=== PATIENT | male | born 1985 | race Caucasian/White ===

== ENCOUNTER → 2018-04-21 13:37 | Outpatient (CLI) | payer MEDICAID, SELFPAY ==
[2018-04-21 14:10] LABS: Abs Immature Grans 0.03 k/cumm (0.0-0.09); Absolute Basophil Count 0.03 k/cumm (0.0-0.2); Absolute Eosinophil Count 0.01 k/cumm (0.0-0.7); Absolute Lymphocyte Count 1.46 k/cumm (1.2-3.4); Absolute Monocyte Count 0.57 k/cumm (0.11-0.7); Absolute Neutrophil Count 5.98 k/cumm (1.2-6.7); Basophils % 0.4; Eosinophils % 0.1; HCT 43.7 % (40.0-50.0); HGB 15.4 g/dL (13.5-17.5); Immature Grans % 0.4; Lymphocytes % 18.1; Mean Corp. HGB Concentration 35.2 g/dL (32.0-36.0); Mean Corpuscular Hemoglobin 28.7 pg (27.0-33.0); Mean Corpuscular Volume 81.4 fL (80-95); Mean Platelet Volume 9.3 fL (8.0-11.0); Monocytes % 7.1; Neutrophils % 73.9; Platelet Count 177 x1000/uL (130-400); RBC 5.37 m/cumm (4.50-6.00); RBC Distribution Width 14.1 % (11.8-14.1); White Blood Cell Count 8.08 k/cumm (4.4-10.8)
== END ==
PROVIDERS: PCP Family Medicine; Visit Provider Nurse Practitioner Psychiatric/Mental Health
DX: F20.9 Schizophrenia, unspecified (principal); Z79.899 Other long term (current) drug therapy
CPT/HCPCS: 36415; 85025

== ENCOUNTER 2018-05-23 12:41 | Outpatient (CLI) | payer MEDICAID, SELFPAY ==
[2018-05-23 13:10] LABS: Abs Immature Grans 0.03 k/cumm (0.0-0.09); Absolute Basophil Count 0.04 k/cumm (0.0-0.2); Absolute Lymphocyte Count 1.47 k/cumm (1.2-3.4); Absolute Monocyte Count 0.56 k/cumm (0.11-0.7); Absolute Neutrophil Count 6.45 k/cumm (1.2-6.7); Basophils % 0.5; HCT 44.8 % (40.0-50.0); HGB 15.5 g/dL (13.5-17.5); Immature Grans % 0.4; Lymphocytes % 17.2; Mean Corp. HGB Concentration 34.6 g/dL (32.0-36.0); Mean Corpuscular Hemoglobin 28.6 pg (27.0-33.0); Mean Corpuscular Volume 82.7 fL (80-95); Mean Platelet Volume 9.6 fL (8.0-11.0); Monocytes % 6.5; Neutrophils % 75.4; Platelet Count 183 x1000/uL (130-400); RBC 5.42 m/cumm (4.50-6.00); RBC Distribution Width 14.2 % (11.8-14.1); White Blood Cell Count 8.55 k/cumm (4.4-10.8)
== END 2018-05-23 13:01 ==
PROVIDERS: PCP Family Medicine; Visit Provider Nurse Practitioner Psychiatric/Mental Health
DX: F20.9 Schizophrenia, unspecified (principal); Z79.899 Other long term (current) drug therapy
CPT/HCPCS: 36415; 85025

== ENCOUNTER 2018-06-20 12:49 | Outpatient (CLI) | payer MEDICAID, SELFPAY ==
[2018-06-20 13:02] LABS: Abs Immature Grans 0.02 k/cumm (0.0-0.09); Absolute Basophil Count 0.03 k/cumm (0.0-0.2); Absolute Lymphocyte Count 1.21 k/cumm (1.2-3.4); Absolute Monocyte Count 0.56 k/cumm (0.11-0.7); Absolute Neutrophil Count 4.29 k/cumm (1.2-6.7); Basophils % 0.5; HCT 42.3 % (40.0-50.0); Immature Grans % 0.3; Lymphocytes % 19.8; Mean Corp. HGB Concentration 35.5 g/dL (32.0-36.0); Mean Corpuscular Volume 81.7 fL (80-95); Mean Platelet Volume 9.6 fL (8.0-11.0); Monocytes % 9.2; Neutrophils % 70.2; Platelet Count 177 x1000/uL (130-400); RBC 5.18 m/cumm (4.50-6.00); RBC Distribution Width 13.8 % (11.8-14.1); White Blood Cell Count 6.11 k/cumm (4.4-10.8)
== END 2018-06-20 13:09 ==
PROVIDERS: PCP Family Medicine; Visit Provider Nurse Practitioner Psychiatric/Mental Health
DX: F20.9 Schizophrenia, unspecified (principal); Z79.899 Other long term (current) drug therapy
CPT/HCPCS: 85025

== ENCOUNTER 2018-07-18 13:02 | Outpatient (CLI) | payer MEDICAID, SELFPAY ==
[2018-07-18 13:38] LABS: Abs Immature Grans 0.04 k/cumm (0.0-0.09); Absolute Basophil Count 0.04 k/cumm (0.0-0.2); Absolute Eosinophil Count 0.01 k/cumm (0.0-0.7); Absolute Lymphocyte Count 1.56 k/cumm (1.2-3.4); Absolute Monocyte Count 0.67 k/cumm (0.11-0.7); Absolute Neutrophil Count 5.69 k/cumm (1.2-6.7); Basophils % 0.5; Eosinophils % 0.1; HCT 42.8 % (40.0-50.0); HGB 14.8 g/dL (13.5-17.5); Immature Grans % 0.5; Lymphocytes % 19.5; Mean Corp. HGB Concentration 34.6 g/dL (32.0-36.0); Mean Corpuscular Hemoglobin 28.2 pg (27.0-33.0); Mean Corpuscular Volume 81.7 fL (80-95); Mean Platelet Volume 8.9 fL (8.0-11.0); Monocytes % 8.4; Platelet Count 240 x1000/uL (130-400); RBC 5.24 m/cumm (4.50-6.00); RBC Distribution Width 13.6 % (11.8-14.1); White Blood Cell Count 8.01 k/cumm (4.4-10.8)
== END 2018-07-18 13:22 ==
PROVIDERS: PCP Family Medicine; Visit Provider Nurse Practitioner Psychiatric/Mental Health
DX: F20.9 Schizophrenia, unspecified (principal); Z79.899 Other long term (current) drug therapy
CPT/HCPCS: 36415; 85025

== ENCOUNTER 2018-08-23 12:28 | Outpatient (CLI) | payer MEDICAID, SELFPAY ==
[2018-08-23 13:37] LABS: Abs Immature Grans 0.05 k/cumm (0.0-0.09); Absolute Basophil Count 0.05 k/cumm (0.0-0.2); Absolute Eosinophil Count 0.02 k/cumm (0.0-0.7); Absolute Lymphocyte Count 2.23 k/cumm (1.2-3.4); Absolute Monocyte Count 0.79 k/cumm (0.11-0.7); Absolute Neutrophil Count 5.01 k/cumm (1.2-6.7); Basophils % 0.6; Eosinophils % 0.2; HCT 44.7 % (40.0-50.0); HGB 15.5 g/dL (13.5-17.5); Immature Grans % 0.6; Lymphocytes % 27.4; Mean Corp. HGB Concentration 34.7 g/dL (32.0-36.0); Mean Corpuscular Hemoglobin 27.9 pg (27.0-33.0); Mean Corpuscular Volume 80.4 fL (80-95); Mean Platelet Volume 9.7 fL (8.0-11.0); Monocytes % 9.7; Neutrophils % 61.5; Platelet Count 191 x1000/uL (130-400); RBC 5.56 m/cumm (4.50-6.00); RBC Distribution Width 13.9 % (11.8-14.1); White Blood Cell Count 8.15 k/cumm (4.4-10.8)
== END 2018-08-23 12:48 ==
PROVIDERS: PCP Family Medicine; Visit Provider Nurse Practitioner Psychiatric/Mental Health
DX: F20.9 Schizophrenia, unspecified (principal); Z79.899 Other long term (current) drug therapy
CPT/HCPCS: 36415; 85025

== ENCOUNTER 2018-09-21 11:59 | Outpatient (CLI) | payer MEDICAID, SELFPAY ==
[2018-09-21 12:52] LABS: Abs Immature Grans 0.06 k/cumm (0.0-0.09); Absolute Basophil Count 0.02 k/cumm (0.0-0.2); Absolute Eosinophil Count 0.02 k/cumm (0.0-0.7); Absolute Lymphocyte Count 1.75 k/cumm (1.2-3.4); Absolute Monocyte Count 0.74 k/cumm (0.11-0.7); Absolute Neutrophil Count 6.89 k/cumm (1.2-6.7); Basophils % 0.2; Eosinophils % 0.2; HCT 42.9 % (40.0-50.0); HGB 14.8 g/dL (13.5-17.5); Immature Grans % 0.6; Lymphocytes % 18.5; Mean Corp. HGB Concentration 34.5 g/dL (32.0-36.0); Mean Corpuscular Volume 81.3 fL (80-95); Mean Platelet Volume 9.2 fL (8.0-11.0); Monocytes % 7.8; Neutrophils % 72.7; Platelet Count 204 x1000/uL (130-400); RBC 5.28 m/cumm (4.50-6.00); RBC Distribution Width 14.1 % (11.8-14.1); White Blood Cell Count 9.48 k/cumm (4.4-10.8)
== END 2018-09-21 12:19 ==
PROVIDERS: PCP Family Medicine; Visit Provider Nurse Practitioner Psychiatric/Mental Health
DX: F20.9 Schizophrenia, unspecified (principal); Z79.899 Other long term (current) drug therapy
CPT/HCPCS: 36415; 85025

== ENCOUNTER 2018-10-20 13:30 | Outpatient (CLI) | payer MEDICAID, SELFPAY ==
[2018-10-20 13:55] LABS: Abs Immature Grans 0.02 k/cumm (0.0-0.09); Absolute Basophil Count 0.04 k/cumm (0.0-0.2); Absolute Eosinophil Count 0.09 k/cumm (0.0-0.7); Absolute Lymphocyte Count 2.01 k/cumm (1.2-3.4); Absolute Monocyte Count 0.72 k/cumm (0.11-0.7); Basophils % 0.5; HCT 42.4 % (40.0-50.0); HGB 14.7 g/dL (13.5-17.5); Immature Grans % 0.2; Lymphocytes % 22.9; Mean Corp. HGB Concentration 34.7 g/dL (32.0-36.0); Mean Corpuscular Hemoglobin 27.9 pg (27.0-33.0); Mean Corpuscular Volume 80.6 fL (80-95); Mean Platelet Volume 9.1 fL (8.0-11.0); Monocytes % 8.2; Neutrophils % 67.2; Platelet Count 226 x1000/uL (130-400); RBC 5.26 m/cumm (4.50-6.00); RBC Distribution Width 14.3 % (11.8-14.1); White Blood Cell Count 8.78 k/cumm (4.4-10.8)
== END 2018-10-20 13:50 ==
PROVIDERS: PCP Family Medicine; Visit Provider Nurse Practitioner Psychiatric/Mental Health
DX: F20.9 Schizophrenia, unspecified (principal); Z79.899 Other long term (current) drug therapy
CPT/HCPCS: 36415; 85025

== ENCOUNTER 2018-11-21 11:57 | Outpatient (CLI) | payer MEDICAID, SELFPAY ==
[2018-11-21 12:26] LABS: Abs Immature Grans 0.03 k/cumm (0.0-0.09); Absolute Basophil Count 0.04 k/cumm (0.0-0.2); Absolute Eosinophil Count 0.09 k/cumm (0.0-0.7); Absolute Monocyte Count 0.64 k/cumm (0.11-0.7); Absolute Neutrophil Count 5.87 k/cumm (1.2-6.7); Basophils % 0.5; Eosinophils % 1.1; HCT 44.6 % (40.0-50.0); HGB 15.4 g/dL (13.5-17.5); Immature Grans % 0.4; Lymphocytes % 21.3; Mean Corp. HGB Concentration 34.5 g/dL (32.0-36.0); Mean Corpuscular Hemoglobin 27.7 pg (27.0-33.0); Mean Corpuscular Volume 80.2 fL (80-95); Mean Platelet Volume 9.6 fL (8.0-11.0); Monocytes % 7.6; Neutrophils % 69.1; Platelet Count 211 x1000/uL (130-400); RBC 5.56 m/cumm (4.50-6.00); RBC Distribution Width 14.3 % (11.8-14.1); White Blood Cell Count 8.47 k/cumm (4.4-10.8)
== END 2018-11-21 12:17 ==
PROVIDERS: PCP Family Medicine; Visit Provider Nurse Practitioner Psychiatric/Mental Health
DX: F20.9 Schizophrenia, unspecified (principal); Z79.899 Other long term (current) drug therapy
CPT/HCPCS: 36415; 85025

== ENCOUNTER 2018-12-18 09:45 | Outpatient (CLI) | payer MEDICAID, SELFPAY ==
[2018-12-18 10:28] LABS: Abs Immature Grans 0.03 k/cumm (0.0-0.09); Absolute Basophil Count 0.02 k/cumm (0.0-0.2); Absolute Eosinophil Count 0.09 k/cumm (0.0-0.7); Absolute Lymphocyte Count 1.47 k/cumm (1.2-3.4); Absolute Monocyte Count 0.57 k/cumm (0.11-0.7); Absolute Neutrophil Count 5.61 k/cumm (1.2-6.7); Basophils % 0.3; Eosinophils % 1.2; HCT 43.4 % (40.0-50.0); HGB 14.7 g/dL (13.5-17.5); Immature Grans % 0.4; Lymphocytes % 18.9; Mean Corp. HGB Concentration 33.9 g/dL (32.0-36.0); Mean Corpuscular Hemoglobin 27.5 pg (27.0-33.0); Mean Corpuscular Volume 81.1 fL (80-95); Mean Platelet Volume 9.7 fL (8.0-11.0); Monocytes % 7.3; Neutrophils % 71.9; Platelet Count 209 x1000/uL (130-400); RBC 5.35 m/cumm (4.50-6.00); RBC Distribution Width 14.2 % (11.8-14.1); White Blood Cell Count 7.79 k/cumm (4.4-10.8)
== END 2018-12-18 10:05 ==
PROVIDERS: PCP Family Medicine; Visit Provider Nurse Practitioner Psychiatric/Mental Health
DX: F20.9 Schizophrenia, unspecified (principal); Z79.899 Other long term (current) drug therapy
CPT/HCPCS: 36415; 85025

== ENCOUNTER 2019-01-15 11:31 | Outpatient (CLI) | payer MEDICAID, SELFPAY ==
[2019-01-15 12:04] LABS: Abs Immature Grans 0.02 k/cumm (0.0-0.09); Absolute Basophil Count 0.03 k/cumm (0.0-0.2); Absolute Eosinophil Count 0.07 k/cumm (0.0-0.7); Absolute Lymphocyte Count 1.67 k/cumm (1.2-3.4); Absolute Monocyte Count 0.61 k/cumm (0.11-0.7); Absolute Neutrophil Count 5.98 k/cumm (1.2-6.7); Basophils % 0.4; Eosinophils % 0.8; HCT 44.7 % (40.0-50.0); HGB 15.1 g/dL (13.5-17.5); Immature Grans % 0.2; Lymphocytes % 19.9; Mean Corp. HGB Concentration 33.8 g/dL (32.0-36.0); Mean Corpuscular Hemoglobin 27.4 pg (27.0-33.0); Mean Corpuscular Volume 81.1 fL (80-95); Mean Platelet Volume 9.6 fL (8.0-11.0); Monocytes % 7.3; Neutrophils % 71.4; Platelet Count 216 x1000/uL (130-400); RBC 5.51 m/cumm (4.50-6.00); RBC Distribution Width 14.1 % (11.8-14.1); White Blood Cell Count 8.38 k/cumm (4.4-10.8)
== END 2019-01-15 11:51 ==
PROVIDERS: PCP Family Medicine; Visit Provider Nurse Practitioner Psychiatric/Mental Health
DX: F20.9 Schizophrenia, unspecified (principal); Z79.899 Other long term (current) drug therapy
CPT/HCPCS: 36415; 85025

== ENCOUNTER 2019-02-12 10:20 | Outpatient (CLI) | payer MEDICAID, SELFPAY ==
[2019-02-12 10:50] LABS: Abs Immature Grans 0.03 k/cumm (0.0-0.09); Absolute Basophil Count 0.04 k/cumm (0.0-0.2); Absolute Lymphocyte Count 1.54 k/cumm (1.2-3.4); Absolute Monocyte Count 0.68 k/cumm (0.11-0.7); Absolute Neutrophil Count 5.91 k/cumm (1.2-6.7); Basophils % 0.5; Eosinophils % 1.2; HCT 42.7 % (40.0-50.0); HGB 14.6 g/dL (13.5-17.5); Immature Grans % 0.4; Lymphocytes % 18.6; Mean Corp. HGB Concentration 34.2 g/dL (32.0-36.0); Mean Corpuscular Hemoglobin 27.7 pg (27.0-33.0); Mean Platelet Volume 9.6 fL (8.0-11.0); Monocytes % 8.2; Neutrophils % 71.1; Platelet Count 195 x1000/uL (130-400); RBC 5.27 m/cumm (4.50-6.00)
== END 2019-02-12 10:40 ==
PROVIDERS: Nurse Practitioner Family; PCP Family Medicine; Visit Provider Family Medicine
DX: F20.9 Schizophrenia, unspecified (principal); Z79.899 Other long term (current) drug therapy
CPT/HCPCS: 36415; 85025

== ENCOUNTER 2019-03-12 10:30 | Outpatient (CLI) | payer MEDICAID, SELFPAY ==
[2019-03-12 11:11] LABS: Abs Immature Grans 0.02 k/cumm (0.0-0.09); Absolute Basophil Count 0.03 k/cumm (0.0-0.2); Absolute Lymphocyte Count 1.37 k/cumm (1.2-3.4); Absolute Monocyte Count 0.47 k/cumm (0.11-0.7); Absolute Neutrophil Count 5.39 k/cumm (1.2-6.7); Basophils % 0.4; Eosinophils % 1.4; HCT 43.3 % (40.0-50.0); HGB 14.8 g/dL (13.5-17.5); Immature Grans % 0.3; Lymphocytes % 18.6; Mean Corp. HGB Concentration 34.2 g/dL (32.0-36.0); Mean Corpuscular Hemoglobin 27.6 pg (27.0-33.0); Mean Corpuscular Volume 80.8 fL (80-95); Mean Platelet Volume 9.6 fL (8.0-11.0); Monocytes % 6.4; Neutrophils % 72.9; Platelet Count 195 x1000/uL (130-400); RBC 5.36 m/cumm (4.50-6.00); RBC Distribution Width 13.9 % (11.8-14.1); White Blood Cell Count 7.38 k/cumm (4.4-10.8)
== END 2019-03-12 10:50 ==
PROVIDERS: PCP Family Medicine; Visit Provider Nurse Practitioner Psychiatric/Mental Health
DX: F20.9 Schizophrenia, unspecified (principal); Z79.899 Other long term (current) drug therapy
CPT/HCPCS: 36415; 85025

== ENCOUNTER 2019-04-09 10:27 | Outpatient (CLI) | payer MEDICAID, SELFPAY ==
[2019-04-09 10:58] LABS: Abs Immature Grans 0.04 k/cumm (0.0-0.09); Absolute Basophil Count 0.04 k/cumm (0.0-0.2); Absolute Eosinophil Count 0.14 k/cumm (0.0-0.7); Absolute Lymphocyte Count 1.45 k/cumm (1.2-3.4); Absolute Monocyte Count 0.52 k/cumm (0.11-0.7); Absolute Neutrophil Count 5.38 k/cumm (1.2-6.7); Basophils % 0.5; Eosinophils % 1.8; HCT 42.6 % (40.0-50.0); HGB 14.4 g/dL (13.5-17.5); Immature Grans % 0.5; Lymphocytes % 19.2; Mean Corp. HGB Concentration 33.8 g/dL (32.0-36.0); Mean Corpuscular Hemoglobin 27.4 pg (27.0-33.0); Mean Platelet Volume 9.5 fL (8.0-11.0); Monocytes % 6.9; Neutrophils % 71.1; Platelet Count 194 x1000/uL (130-400); RBC 5.26 m/cumm (4.50-6.00); RBC Distribution Width 14.3 % (11.8-14.1); White Blood Cell Count 7.57 k/cumm (4.4-10.8)
== END 2019-04-09 10:47 ==
PROVIDERS: PCP Family Medicine; Visit Provider Nurse Practitioner Family
DX: F20.9 Schizophrenia, unspecified (principal); Z79.899 Other long term (current) drug therapy
CPT/HCPCS: 36415; 85025

== ENCOUNTER 2019-05-07 12:42 | Outpatient (CLI) | payer MEDICAID, SELFPAY ==
[2019-05-07 14:09] LABS: Abs Immature Grans 0.04 k/cumm (0.0-0.09); Absolute Basophil Count 0.04 k/cumm (0.0-0.2); Absolute Eosinophil Count 0.11 k/cumm (0.0-0.7); Absolute Lymphocyte Count 1.88 k/cumm (1.2-3.4); Absolute Monocyte Count 0.65 k/cumm (0.11-0.7); Absolute Neutrophil Count 5.77 k/cumm (1.2-6.7); Basophils % 0.5; Eosinophils % 1.3; HCT 44.9 % (40.0-50.0); HGB 15.1 g/dL (13.5-17.5); Immature Grans % 0.5; Lymphocytes % 22.1; Mean Corp. HGB Concentration 33.6 g/dL (32.0-36.0); Mean Corpuscular Hemoglobin 27.5 pg (27.0-33.0); Mean Corpuscular Volume 81.6 fL (80-95); Mean Platelet Volume 9.6 fL (8.0-11.0); Monocytes % 7.7; Neutrophils % 67.9; Platelet Count 238 x1000/uL (130-400); RBC Distribution Width 14.5 % (11.8-14.1); White Blood Cell Count 8.49 k/cumm (4.4-10.8)
== END 2019-05-07 13:02 ==
PROVIDERS: PCP Family Medicine; Visit Provider Nurse Practitioner Family
DX: F20.9 Schizophrenia, unspecified (principal); Z79.899 Other long term (current) drug therapy
CPT/HCPCS: 36415; 85025

== ENCOUNTER 2019-06-07 11:06 | Outpatient (CLI) | payer MEDICAID, SELFPAY ==
[2019-06-07 11:33] LABS: Abs Immature Grans 0.02 k/cumm (0.0-0.09); Absolute Basophil Count 0.05 k/cumm (0.0-0.2); Absolute Eosinophil Count 0.19 k/cumm (0.0-0.7); Absolute Lymphocyte Count 2.01 k/cumm (1.2-3.4); Absolute Monocyte Count 0.75 k/cumm (0.11-0.7); Absolute Neutrophil Count 6.18 k/cumm (1.2-6.7); Basophils % 0.5; Eosinophils % 2.1; HCT 44.3 % (40.0-50.0); Immature Grans % 0.2; Lymphocytes % 21.8; Mean Corp. HGB Concentration 33.9 g/dL (32.0-36.0); Mean Corpuscular Hemoglobin 27.1 pg (27.0-33.0); Mean Corpuscular Volume 80.1 fL (80-95); Mean Platelet Volume 9.2 fL (8.0-11.0); Monocytes % 8.2; Neutrophils % 67.2; Platelet Count 235 x1000/uL (130-400); RBC 5.53 m/cumm (4.50-6.00); RBC Distribution Width 14.5 % (11.8-14.1)
== END 2019-06-07 11:26 ==
PROVIDERS: PCP Family Medicine; Visit Provider Nurse Practitioner Family
DX: F20.9 Schizophrenia, unspecified (principal); Z79.899 Other long term (current) drug therapy
CPT/HCPCS: 36415; 85025

== ENCOUNTER 2019-06-26 14:53 | Emergency (ER) | payer MEDICAID, SELFPAY ==
[2019-06-26 14:58] VITALS: BP 119/63; PULSE 120; RESP 20; TEMP 36.7; O2SAT 96
--- NOTE | 2019-06-26 15:10 | ED.GENADUL_ITS ---
Discharge Plan Disposition Patient Disposition: HOME Condition: Stable Discharge Details Chief Complaint: PsychEval Clinical Impression: Depression Primary Care Provider: Shelby Rankin V ED Provider: Ronnie Phipps Home Meds and New Rx's Prescriptions: Continued ibuprofen 800 mg Tablet 800 mg PO TID PRNRF: 0 clozapine 100 mg Tablet 200 mg PO HS RF: 0 omeprazole 20 mg Capsule,Delayed Release(Dr/Ec) 20 mg PO DAILY RF: 0 hydroxyzine HCl 25 mg Tablet 25 mg PO BID PRNRF: 0 diazepam 10 mg Tablet 10 mg PO BID PRNRF: 0 olanzapine 20 mg Tablet 20 mg PO QHS RF: 0 Discharge Instructions Instructions: Depression (ED), Suicide Prevention for Adults (ED) Additional Instructions: Please follow-up with your primary care doctor for endocrine testing as discussed for screening for abnormal hormones which can possibly contribute to weight gain and depression. Rest activities as tolerated. Follow-up with outpatient services with your counselor and very closely with yo primary care doctor as discussed. You were evaluated by mental health today which feels you are appropriate for discharge home at this time. Return for any worsening, concerns or alarming symptoms sooner if needed Referrals: Shelby Rankin MD [Primary Care Provider] - 1 week Discharge Data Discharge Date/Time-TO BE ENTERED AT DEPARTURE: 06/26/19 17:05 Medical Decision Making <GERONIMO Cook - Last Filed: 06/27/19 13:44> Mental health at the bedside to evaluate this patient for suicidal ideation which she reports is somewhat chronic but worse in the last few weeks. <Ronnie Phipps NP - Last Filed: 06/26/19 23:45> Patient signed out to me by GERONIMO Catalan. Patient fully assessed by mental health acute securities underwriter and deemed safe for discharge. Patient states no further suicidal ideations but continued depression. Patient denies any specific plan at this time. Clearly reiterated to patient that he may return to the emergency department if he changes his mind or has any worsening depression or suicidal ideations. And also was speaking to patient myself I do not feel that there is any need to make patient involuntary at this time. Patient was placed upon follow-up list to follow-up with his primary care provider for both worsening depression and consideration of any medication changes along with consideration of endocrine studies such as thyroid and adrenal. I do not feel that these need to be done on emergent basis but should be considered. After discussion of diagnosis and plan of care patient has no further needs, questions, or concerns and states clear understanding to return to the emergency department for any worsening symptoms. HPI <GERONIMO Cook - Last Filed: 06/27/19 13:44> General Date/Time Provider Initiated Documentation: 06/26/19 14:54 . HPI Narrative: This is a 33-year-old gentleman who presents to the emergency room today for mental health evaluation. Patient reports he is feeling suicidal. Patient reports significant depression, lack of self-confidence. Lives with his father and brother and reports stress living at home. Patient also reports stressors related to an ex-girlfriend. Patient reports chronic suicidality for the last several months but worse in the last few weeks recently becoming more intense thoughts. Patient is compliant with his daily medications. Patient reports he does feel safe at home but reports his overwhelming feeling is angry. Denies any specific medical concerns or complaints. Does report difficulty sleeping at night. Patient reports eating or drinking without difficulty. No bowel changes or urinary changes recently. Related Data Home Medications Medication Instructions Recorded Confirmed clozapine 200 mg PO HS 06/26/19 06/26/19 diazepam 10 mg PO BID PRN 06/26/19 06/26/19 hydroxyzine HCl 25 mg PO BID PRN 06/26/19 06/26/19 ibuprofen 800 mg PO TID PRN 06/26/19 06/26/19 olanzapine 20 mg PO QHS 06/26/19 06/26/19 omeprazole 20 mg PO DAILY 06/26/19 06/26/19 Allergies Allergy/AdvReac Type Severity Reaction Status Date / Time No Known Allergies Allergy Unverified 06/26/19 15:01 General Stated Complaint: PsychEval JOHN: 2 Review of Systems <GERONIMO oCok - Last Filed: 06/27/19 13:44> All systems reviewed & are unremarkable except as noted in HPI and below Constitutional Constitutional: Denies chills, Denies fever(s), Denies headache(s) and Denies malaise ENT Ears, Nose, Mouth, and Throat: Denies dizziness and Denies headache(s) Respiratory Respiratory: Reports cough and Denies pain with cough Gastrointestinal Gastrointestinal: Denies abdominal pain, Denies diarrhea, Denies nausea and Denies vomiting Genitourinary Genitourinary: Denies dysuria Neurologic Neurologic: Denies dizziness and Denies headache(s) PFSH <GERONIMO Cook - Last Filed: 06/27/19 13:44> Social History Smoking/Tobacco Use Status: Current every day Alcohol Intake: never Drug use: Never Substance use type: does not use Do you feel safe at home: Yes Do you feel safe in your relationship?: Yes Exam <GERONIMO Cook - Last Filed: 06/27/19 13:44> Narrative Exam Narrative: CONST: no acute distress. Well hydrated. Alert and alert. Obese HENMT: Head nomocephalic, normal to inspection. Atraumatic. Hearing grossly normal. EYES: General normal appearance. Alignment normal. Eyelids normal. Conjunctiva normal. NECK: Normal visual inspection. FROM. Trachea midline. No Midline tenderness. CHEST: Normal insepection of the chest. RESP: Normal respiratory effort. Speaking full sentences. No cough. No audible wheezing. No retractions. CARDIO: No JVD. MUSCULOSKELETAL: Normal Gait. FROM of all extremities. SKIN: Normal. Dry. No rashes. NEURO: Alert and awake. Speech clear. PSYCH: Normal affect. Cooperative. Course <GERONIMO Cook - Last Filed: 06/27/19 13:44> Vital Signs Vital signs: Vital Signs Temperature 36.7 C 06/26/19 14:58 Pulse 120 H 06/26/19 14:58 Respiratory Rate 20 06/26/19 14:58 Blood Pressure 119/63 06/26/19 14:58 Pulse Oximetry 96 06/26/19 14:58 Temperature 36.7 C 06/26/19 14:58 Temperature Source Temporal Artery Scan 06/26/19 14:58 Pulse 120 H 06/26/19 14:58 Respiratory Rate 20 06/26/19 14:58 Blood Pressure 119/63 06/26/19 14:58 Pulse Oximetry 96 06/26/19 14:58 Oxygen Delivery Method Room Air 06/26/19 14:58 Oxygen Flow Rate 0 06/26/19 14:58 Pain Level 6 06/26/19 14:58 Sign Out <GERONIMO Cook - Last Filed: 06/27/19 13:44> Sign Out Data: Sign Out Comment: Signout pending disposition Last updated by Tiny Meredith PA at 06/26/19 16:27
[2019-06-26 17:07] VITALS: BP 119/63; PULSE 108; RESP 20; TEMP 36.7; O2SAT 96
--- NOTE | 2019-06-26 17:08 | NUR.NOTE ---
Nursing Note: Referral faxed to PCP for follow up. Faith Norman.
--- NOTE | 2019-06-27 11:04 | PDOC.MHCN ---
Date of service: 06/26/19 Time of Service: 03:00 Mental Health Crisis Note Presenting Issue How did you arrive at the ED and why did you come: Client arrived at ER via ambulance Precipitating Factors Client stated that he was suicidal during an appointment with his med provider. Denies SI/HI for this assessment. Disposition BEHAVIOR: Client was laying face down for most of assessment. Sat up occasionally. Possible AVH EYE CONTACT: Avoidant at first, then normal. MOOD: Depressed AFFECT: Tearful at times, otherwise unremarkable. APPETITE: N/A SLEEP(trouble falling/staying asleep: N/A Plan Client denies SI/HI and does not want placement in a psychiatric hospital or carebed. He states wants to return home and will be safe there. Client will be transported home via [facility].
== END 2019-06-26 17:05 | disposition home or self-care (01) ==
LOC: ER 17:01
PROVIDERS: Emergency Provider Nurse Practitioner Family; PCP Family Medicine
DX: F32.9 Major depressive disorder, single episode, unspecified (principal); Z59.9 Problem related to housing and economic circumstances, unspecified
CPT/HCPCS: 99284

== ENCOUNTER 2019-07-05 11:21 | Outpatient (CLI) | payer MEDICAID, SELFPAY ==
[2019-07-05 11:59] LABS: Abs Immature Grans 0.03 k/cumm (0.0-0.09); Absolute Basophil Count 0.03 k/cumm (0.0-0.2); Absolute Eosinophil Count 0.13 k/cumm (0.0-0.7); Absolute Lymphocyte Count 1.42 k/cumm (1.2-3.4); Absolute Monocyte Count 0.67 k/cumm (0.11-0.7); Absolute Neutrophil Count 5.86 k/cumm (1.2-6.7); Basophils % 0.4; Eosinophils % 1.6; Immature Grans % 0.4; Lymphocytes % 17.4; Mean Corp. HGB Concentration 33.3 g/dL (32.0-36.0); Mean Corpuscular Volume 80.9 fL (80-95); Mean Platelet Volume 9.1 fL (8.0-11.0); Monocytes % 8.2; Platelet Count 242 x1000/uL (130-400); RBC 5.19 m/cumm (4.50-6.00); RBC Distribution Width 14.5 % (11.8-14.1); White Blood Cell Count 8.14 k/cumm (4.4-10.8)
== END 2019-07-05 11:41 ==
PROVIDERS: PCP Family Medicine; Visit Provider Nurse Practitioner Family
DX: F20.9 Schizophrenia, unspecified (principal); Z79.899 Other long term (current) drug therapy
CPT/HCPCS: 36415; 85025

== ENCOUNTER 2019-08-13 13:27 | Outpatient (CLI) | payer MEDICAID, SELFPAY ==
[2019-08-13 13:55] LABS: Abs Immature Grans 0.03 k/cumm (0.0-0.09); Absolute Basophil Count 0.02 k/cumm (0.0-0.2); Absolute Eosinophil Count 0.15 k/cumm (0.0-0.7); Absolute Lymphocyte Count 1.75 k/cumm (1.2-3.4); Absolute Monocyte Count 0.69 k/cumm (0.11-0.7); Absolute Neutrophil Count 5.69 k/cumm (1.2-6.7); Basophils % 0.2; Eosinophils % 1.8; HCT 43.3 % (40.0-50.0); HGB 14.4 g/dL (13.5-17.5); Immature Grans % 0.4; Mean Corp. HGB Concentration 33.3 g/dL (32.0-36.0); Mean Corpuscular Hemoglobin 26.6 pg (27.0-33.0); Mean Corpuscular Volume 79.9 fL (80-95); Mean Platelet Volume 9.4 fL (8.0-11.0); Monocytes % 8.3; Neutrophils % 68.3; Platelet Count 247 x1000/uL (130-400); RBC 5.42 m/cumm (4.50-6.00); RBC Distribution Width 14.5 % (11.8-14.1); White Blood Cell Count 8.33 k/cumm (4.4-10.8)
== END 2019-08-13 13:47 ==
PROVIDERS: PCP Family Medicine; Visit Provider Nurse Practitioner Family
DX: F20.9 Schizophrenia, unspecified (principal); Z79.899 Other long term (current) drug therapy
CPT/HCPCS: 36415; 85025

== ENCOUNTER 2019-09-05 10:47 | Outpatient (CLI) | payer MEDICAID, SELFPAY ==
--- NOTE | 2019-09-05 13:07 | PFT_ITS ---
PULMONARY FUNCTION TEST REPORT DATE OF SERVICE: September 05, 2019 REQUESTING PROVIDER: Shelby Rankin M.D. Spirometry shows no evidence of obstructive airways disease; no bronchodilator testing was carried out. IMPRESSION: Normal spirometry. Clinical correlation recommended. KUSHAL/lilia D/
== END 2019-09-05 11:07 ==
PROVIDERS: PCP Family Medicine; Visit Provider Family Medicine
DX: R06.09 Other forms of dyspnea (principal); R05 Cough
CPT/HCPCS: 94010

== ENCOUNTER 2019-09-20 13:59 | Outpatient (CLI) | payer MEDICAID, SELFPAY ==
[2019-09-20 15:05] LABS: Abs Immature Grans 0.04 k/cumm (0.0-0.09); Absolute Basophil Count 0.03 k/cumm (0.0-0.2); Absolute Eosinophil Count 0.14 k/cumm (0.0-0.7); Absolute Lymphocyte Count 2.07 k/cumm (1.2-3.4); Absolute Monocyte Count 0.84 k/cumm (0.11-0.7); Absolute Neutrophil Count 5.99 k/cumm (1.2-6.7); Basophils % 0.3; Eosinophils % 1.5; HCT 43.1 % (40.0-50.0); HGB 14.6 g/dL (13.5-17.5); Immature Grans % 0.4 %; Lymphocytes % 22.7; Mean Corp. HGB Concentration 33.9 g/dL (32.0-36.0); Mean Corpuscular Hemoglobin 27.1 pg (27.0-33.0); Mean Platelet Volume 9.5 fL (8.0-11.0); Monocytes % 9.2; Neutrophils % 65.9; Platelet Count 245 x1000/uL (130-400); RBC 5.39 m/cumm (4.50-6.00); RBC Distribution Width 14.8 % (11.8-14.1); White Blood Cell Count 9.11 k/cumm (4.4-10.8)
== END 2019-09-20 14:19 ==
PROVIDERS: PCP Family Medicine; Visit Provider Nurse Practitioner Family
DX: F20.9 Schizophrenia, unspecified (principal); Z79.899 Other long term (current) drug therapy
CPT/HCPCS: 36415; 85025

== ENCOUNTER 2019-09-29 06:53 | Emergency (ER) | payer MEDICAID, SELFPAY ==
[2019-09-29 06:59] VITALS: BP 108/90; PULSE 125; RESP 20; TEMP 36; O2SAT 97
--- NOTE | 2019-09-29 06:59 | ED.GENADUL_ITS ---
Discharge Plan Disposition Patient Disposition: HOME Condition: Good Discharge Details Chief Complaint: Orthopedic Clinical Impression: Contusion of hand, right Primary Care Provider: Shelby Rankin V ED Provider: Song Dubose Home Meds and New Rx's Prescriptions: Continued ibuprofen 800 mg Tablet 800 mg PO TID PRNRF: 0 clozapine 100 mg Tablet 200 mg PO HS RF: 0 omeprazole 20 mg Capsule,Delayed Release(Dr/Ec) 20 mg PO DAILY RF: 0 hydroxyzine HCl 25 mg Tablet 25 mg PO BID PRNRF: 0 diazepam 10 mg Tablet 10 mg PO BID PRNRF: 0 olanzapine 20 mg Tablet 20 mg PO QHS RF: 0 Discharge Instructions Instructions: Contusion in Adults (ED) Additional Instructions: You have a notable contusion of your hand. The x-ray shows no signs of a fracture per our radiologist. Please take 1000 mg of Tylenol every 6 hours and 800 mg of ibuprofen every 8 hours as needed for pain. Please use the brace as needed. If you notice any worsening of your symptoms, or any new symptoms such as vomiting, diarrhea, fever, chills, shortness of breath, chest pain, numbness, weakness, or fainting , please return immediately to the emergency department for reevaluation. Please follow up with your primary care provider as soon as possible for reassessment and reevaluation. As always, it was a pleasure participating in your medical care today. Referrals: Shelby Rankin MD [Primary Care Provider] - Medical Decision Making This is a pleasant 34-year-old male who presents for evaluation of right hand pain in his dominant hand. Patient punched a door frame last night. Exam demonstrates small amount of swelling over the distal fifth metacarpal. No atypical internal or external rotation of the fingers on flexion. Symptoms are concerning for boxer's fracture. Contusion is also certainly on the differential. We will get an x-ray. Patient is refusing Tylenol or Motrin. With no focal neurologic or vascular deficits, do feel that the patient's hand is otherwise notably stable. 7:42 AM X-ray results are negative for acute fracture per virtual radiology. We will give a boxer splint for comfort per patient request. Signs and symptoms clinically consistent with contusion discussed red flags which to return. I have extensively reviewed the treatment plan and discharge instructions with the patient. I have addressed all patient concerns at this time. The patient was made aware of what symptoms to monitor for that would warrant a return to the emergency department. Discussed the plan with the patient, they demonstrate verbal understanding and agreement with our assessment and plan at this time. 7:50 AM Patient did refuse the splint. He will be discharged home. Pain well controlled. FINDINGS: Bones/joints: No fracture or dislocation. Normal bone density. Degenerative arthrosis of the index finger distal interphalangeal joint. Soft tissues: Swelling of the hand soft tissues. IMPRESSION: No fracture. Thank you for allowing us to participate in the care of your patient. Dictated and Authenticated by: Iggy España MD 09/29/2019 7:43 AM Eastern Time ([place] & [place]) HPI General Date/Time Provider Initiated Documentation: 09/29/19 06:56 . HPI Narrative: This is a 34-year-old male who presents today for evaluation of pain in his right dominant hand. Last night he punched a door frame with his hand. He has had mild pain over the fifth metacarpal since then. Pain is made worse with movement. He has no associated numbness or tingling. He has not taken any medication for the pain. He came at the request of his friends. He denies any complaint of pain in his wrist forearm or fingers. He denies any other modifying factors. Related Data Home Medications Medication Instructions Recorded Confirmed clozapine 200 mg PO HS 06/26/19 09/29/19 diazepam 10 mg PO BID PRN 06/26/19 09/29/19 hydroxyzine HCl 25 mg PO BID PRN 06/26/19 09/29/19 ibuprofen 800 mg PO TID PRN 06/26/19 09/29/19 olanzapine 20 mg PO QHS 06/26/19 09/29/19 omeprazole 20 mg PO DAILY 06/26/19 09/29/19 Allergies Allergy/AdvReac Type Severity Reaction Status Date / Time No Known Allergies Allergy Unverified 09/29/19 07:02 General JOHN: 2 Review of Systems All systems reviewed & are unremarkable except as noted in HPI and below PFSH Social History Smoking/Tobacco Use Status: Current every day Tobacco Type: cigarettes Alcohol Intake: never Drug use: Never Substance use type: does not use Do you feel safe at home: Yes Do you feel safe in your relationship?: Yes Exam Narrative Exam Narrative: 1.Const: Well-nourished, Well-developed, appearing stated age 2.Eyes: PERRL, no conjunctival injection, and symmetrical lids. 3.ENT: Atraumatic external nose and ears. Moist MM. Neck: Symmetric, trachea midline, No thyromegaly. 4.CVS: +S1/S2, No murmurs or gallops. Peripheral pulses 2+ and equal in all extremities. Brisk capillary refill in all extremities. 5.RESP: Unlabored respiratory effort. Clear to auscultation bilaterally. No wheezes rales or rhonchi 6.GI: Soft, Nontender/Nondistended, No hepatosplenomegaly. No guarding or rebound. 7.MSK: Normocephalic, Extremities w/o deformity. Right hand: Warm symmetrically palpable radial and ulnar pulses. Capillary refill less than 2 seconds to all digits. Intact sensation to light touch of the radial, median and ulnar nerves demonstrated by testing in the dorsal web space of the thumb, the distal palmar aspect of the index finger, and the lateral surface of the fifth finger. 2 point discrimination intact to 5mm (up to 6mm can be normal in digits 3-5) of discrimination in the affected digit. Intact motor function of the radial, median and ulnar nerves demonstrated by strength of extension of the isolated distal joint of the index finger, hand plastic roller, and spreading of the 2nd through 5th digits. Intact recurrent median nerve as demonstrated by ability to move thumb fully through opposition, abduction and flexion. No snuffbox tenderness. Mild tenderness as well as mild edema over the distal aspect of the fifth metacarpal. Flexion of all fingers reveals no atypical internal or external rotation. 8.Skin: Warm, Dry. No rashes or lesions. 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 Sensation grossly intact, no focal neurologic deficits. 10.Psych: (AAO) x3. Appropriate mood and affect Smells of Sign Out Sign Out Data: Sign Out Comment: Pending x-ray results. Suspect contusion versus boxer fracture Last updated by Song Dubose DO at 09/29/19 07:29
--- NOTE | 2019-09-29 07:15 | DI.RAD_ITS ---
EXAM: XR HAND RT COMPLETE INDICATION: punched door, pain at 5th metacarpal. COMPARISON: No exams were available for comparison TECHNIQUE: 2D digital imaging was performed. FINDINGS: There is a fracture through the distal metadiaphyseal junction of the right 4th metacarpal. There is mild impaction of the fracture noted. No other acute fracture or dislocation is present. There is soft tissue swelling of the hand. No radiopaque foreign bodies are identified. IMPRESSION: Acute fracture through the distal metadiaphyseal junction of the right 4th metacarpal bone.
--- NOTE | 2019-09-29 07:41 | DI.VRAD_ITS ---
PROCEDURE INFORMATION: Exam: XR Right Hand Exam date and time: 09/29/2019 7:12 AM Age: 34 years old Clinical indication: Injury or trauma; Injury history: Punched a door; Initial encounter; Blunt trauma (contusions or hematomas; Hand; Right; Injury date: 09/29/19 TECHNIQUE: Imaging protocol: XR Right hand. Views: 3 or more views. COMPARISON: No relevant prior studies available. FINDINGS: Bones/joints: No fracture or dislocation. Normal bone density. Degenerative arthrosis of the index finger distal interphalangeal joint. Soft tissues: Swelling of the hand soft tissues. IMPRESSION: No fracture. Dictated and Authenticated by: Iggy España MD. Ordering:DARCIE Zuleta MD
[2019-09-29 07:50] VITALS: BP 108/90; PULSE 125; RESP 20; TEMP 36; O2SAT 97
== END 2019-09-29 07:50 | disposition home or self-care (01) ==
PROVIDERS: Emergency Provider Student in an Organized Health Care Education/Training Program; PCP Family Medicine
DX: S60.221A Contusion of right hand, initial encounter (principal); W22.8XXA Striking against or struck by other objects, initial encounter
CPT/HCPCS: 29125; 99283; 73130

== ENCOUNTER 2019-10-25 15:00 | Outpatient (CLI) | payer MEDICAID, SELFPAY ==
[2019-10-25 15:23] LABS: Abs Immature Grans 0.03 k/cumm (0.0-0.09); Absolute Basophil Count 0.04 k/cumm (0.0-0.2); Absolute Eosinophil Count 0.19 k/cumm (0.0-0.7); Absolute Monocyte Count 0.63 k/cumm (0.11-0.7); Absolute Neutrophil Count 6.87 k/cumm (1.2-6.7); Basophils % 0.4; HCT 43.5 % (40.0-50.0); HGB 14.3 g/dL (13.5-17.5); Immature Grans % 0.3 %; Mean Corp. HGB Concentration 32.9 g/dL (32.0-36.0); Mean Corpuscular Hemoglobin 26.6 pg (27.0-33.0); Mean Corpuscular Volume 80.9 fL (80-95); Monocytes % 6.7; Neutrophils % 72.6; Platelet Count 253 x1000/uL (130-400); RBC 5.38 m/cumm (4.50-6.00); RBC Distribution Width 14.7 % (11.8-14.1); White Blood Cell Count 9.46 k/cumm (4.4-10.8)
== END 2019-10-25 15:20 ==
PROVIDERS: PCP Family Medicine; Visit Provider Nurse Practitioner Psychiatric/Mental Health
DX: F20.9 Schizophrenia, unspecified (principal); Z79.899 Other long term (current) drug therapy
CPT/HCPCS: 36415; 85025

== ENCOUNTER 2019-11-13 17:22 | Outpatient (REF) | payer MEDICAID, SELFPAY ==
[2019-11-13 19:12] LABS: Abs Immature Grans 0.07 k/cumm (0.0-0.09); Absolute Basophil Count 0.03 k/cumm (0.0-0.2); Absolute Eosinophil Count 0.19 k/cumm (0.0-0.7); Absolute Lymphocyte Count 1.95 k/cumm (1.2-3.4); Absolute Monocyte Count 0.83 k/cumm (0.11-0.7); Basophils % 0.3; Eosinophils % 1.7; HCT 42.4 % (40.0-50.0); HGB 14.1 g/dL (13.5-17.5); Immature Grans % 0.6 %; Lymphocytes % 17.7; Mean Corp. HGB Concentration 33.3 g/dL (32.0-36.0); Mean Corpuscular Hemoglobin 26.6 pg (27.0-33.0); Monocytes % 7.5; Neutrophils % 72.2; Platelet Count 275 x1000/uL (130-400); RBC Distribution Width 14.9 % (11.8-14.1); White Blood Cell Count 11.02 k/cumm (4.4-10.8)
[2019-11-13 20:17] LABS: Absolute Neutrophil Count 7.96 k/cumm (1.2-6.7)
== END 2019-11-13 17:42 ==
LOC: NCHCN 17:22
PROVIDERS: PCP Family Medicine; Visit Provider Family Medicine
DX: R16.1 Splenomegaly, not elsewhere classified (principal); F20.89 Other schizophrenia
CPT/HCPCS: 85027; 85025

== ENCOUNTER 2020-01-04 12:48 | Outpatient (REF) | payer MEDICAID, SELFPAY ==
[2020-01-04 19:15] LABS: Abs Immature Grans 0.06 k/cumm (0.0-0.09); Absolute Basophil Count 0.04 k/cumm (0.0-0.2); Absolute Eosinophil Count 0.15 k/cumm (0.0-0.7); Absolute Lymphocyte Count 1.76 k/cumm (1.2-3.4); Absolute Monocyte Count 0.54 k/cumm (0.11-0.7); Absolute Neutrophil Count 7.01 k/cumm (1.2-6.7); Basophils % 0.4; Eosinophils % 1.6; HCT 43.8 % (40.0-50.0); HGB 14.5 g/dL (13.5-17.5); Immature Grans % 0.6 %; Lymphocytes % 18.4; Mean Corp. HGB Concentration 33.1 g/dL (32.0-36.0); Mean Corpuscular Hemoglobin 26.3 pg (27.0-33.0); Mean Corpuscular Volume 79.3 fL (80-95); Monocytes % 5.6; Neutrophils % 73.4; Platelet Count 269 x1000/uL (130-400); RBC 5.52 m/cumm (4.50-6.00); RBC Distribution Width 14.9 % (11.8-14.1); White Blood Cell Count 9.56 k/cumm (4.4-10.8)
== END 2020-01-04 13:08 ==
LOC: NCHCN 12:48
PROVIDERS: PCP Family Medicine; Visit Provider Family Medicine
DX: R16.1 Splenomegaly, not elsewhere classified (principal)
CPT/HCPCS: 85025

== ENCOUNTER 2020-01-10 15:52 | Outpatient (REF) | payer MEDICAID, SELFPAY ==
[2020-01-11 15:39] LABS: COVID-19 RT-PCR Result NEGATIVE (Negative)
== END 2020-01-10 16:12 ==
LOC: NCHCN 15:52
PROVIDERS: PCP Family Medicine; Visit Provider Nurse Practitioner Family
DX: J06.9 Acute upper respiratory infection, unspecified (principal)
CPT/HCPCS: U0003

== ENCOUNTER 2020-01-27 00:26 | Emergency (ER) | payer MEDICAID, SELFPAY ==
[2020-01-27 00:26] VITALS: BP 142/99; PULSE 109; RESP 18; TEMP 36.9; O2SAT 97
--- NOTE | 2020-01-27 00:30 | DI.CT_ITS ---
EXAM: CT NECK WO CLINICAL HISTORY: feels mass in throat TECHNIQUE: COMPARISON: CT CT NECK W from 01/27/[address] NECK W from 01/27/2020 FINDINGS: CT examination of the cervical region was performed prior to and following intravenous infusion of 10 0 cc of Omnipaque 350. There is a marked cervical kyphosis. Significant motion artifact noted. No acute fracture. Visualized lung apices are clear. Tracheolaryngeal structures appear intact. No ev idence of a retropharyngeal mass, abscess, or fluid collection. No cervical mass or adenopathy. Héctor ivary glands are unremarkable. Probable chronic right maxillary sinusitis and left maxillary retenti on cyst or polyp noted. Orbital structures appear intact. Temporal bone structures appear intact. Mastoid air cells are clear. IMPRESSION: marked cervical kyphosis distorts cervical structures but there is no evidence of a retropharyngeal mass or abscess or airway obstruction. No cervical adenopathy. No other significant findings
--- NOTE | 2020-01-27 00:44 | W.ED.GENAD ---
Discharge Plan Disposition Patient Disposition: HOME Condition: Stable Discharge Details Chief Complaint: Fever Clinical Impression: Neck pain Primary Care Provider: Shelby Rankin V ED Provider: Sebas Burleson Home Meds and New Rx's Prescriptions: Continued ibuprofen 800 mg Tablet 800 mg PO TID PRNRF: 0 clozapine 100 mg Tablet 200 mg PO HS RF: 0 omeprazole 20 mg Capsule,Delayed Release(Dr/Ec) 20 mg PO DAILY RF: 0 hydroxyzine HCl 25 mg Tablet 25 mg PO BID PRNRF: 0 diazepam 10 mg Tablet 10 mg PO BID PRNRF: 0 olanzapine 20 mg Tablet 20 mg PO QHS RF: 0 Discharge Instructions Additional Instructions: your cat scan with contrast did not show any concerning findings follow up with your primary care provider this week and discuss having a sleep study if you feel more ill or have inability to swallow liquids return to the emergency department Medical Decision Making 34 yo male comes in with 3 days of feeling as though when he lays flat there is something pushing his throat closed. He denies any difficulty swallowing or breathing otherwise. Tonight he felt warm so called ems though denies any fevers or chills. ARrives speaking in full sentences with normal oropharynx. He has significantly thick neck which makes exam limited. I suspect his symptoms are due to julien given body habitus but will image to eval for possible mass, less likely rpa or ludwigs. patient remains stable, noncontrast ct shows question of possible small fluid collection and recommend IV study. Will order this to eval for rpa and monitor ct with contrast shows no rpa or other concerning findings, he remains stable, will d/c home and advised to f/u with pcp to discuss sleep study this week Differential Diagnosis Differential Diagnosis: julien, globus pallidus, throat mass Medical Records Medical records reviewed: Yes I reviewed the patient's medical records. Imaging Data Radiologic Study: Attestation: I personally reviewed and interpreted this imaging study as follows: Imaging: CT Scan Radiologist's impression: IMPRESSION: Question prominence of the retropharyngeal tissue/possible fluid. Consider contrast enhanced CT of the neck to exclude small abscess in the retropharyngeal space Radiologic Study #2: Attestation: I personally reviewed and interpreted this imaging study as follows: Imaging: CT Scan Radiologist's impression: IMPRESSION: No retropharyngeal collection detected Lab Data Lab results reviewed: Yes I reviewed the patient's lab results. HPI General Mode of arrival: EMS. Date/Time Provider Initiated Documentation: 01/27/20 00:29. Limitations to Documentation: no limitations. Information obtained by: patient. History of Present Illness 34 year old M presents to the emergency department with the chief complaint of ?throat mass, described as moderate, Patient started experiencing this day(s) (2) and it has been constant. No relieving factors improve symptom(s), No exacerbating factors reported . Patient did receive the following treatments prior to arrival, none Related Data Home Medications Medication Instructions Recorded Confirmed clozapine 200 mg PO HS 06/26/19 01/27/20 diazepam 10 mg PO BID PRN 06/26/19 01/27/20 hydroxyzine HCl 25 mg PO BID PRN 06/26/19 01/27/20 ibuprofen 800 mg PO TID PRN 06/26/19 01/27/20 olanzapine 20 mg PO QHS 06/26/19 01/27/20 omeprazole 20 mg PO DAILY 06/26/19 01/27/20 Allergies Allergy/AdvReac Type Severity Reaction Status Date / Time No Known Allergies Allergy Unverified 09/29/19 07:02 General Stated Complaint: Fever JOHN: 4 Review of Systems All systems reviewed & are unremarkable except as noted in HPI and below Constitutional Constitutional: Denies chills, Denies fever(s) and Denies weakness Cardiovascular Cardiovascular: Denies chest pain and Denies dyspnea Respiratory Respiratory: Denies cough and Denies dyspnea Gastrointestinal Gastrointestinal: Denies abdominal pain, Denies nausea and Denies vomiting Musculoskeletal Musculoskeletal: Denies joint swelling Neurologic Neurologic: Denies weakness Psychiatric Psychiatric: Denies depression [facility] Social History Smoking/Tobacco Use Status: Current every day Tobacco Type: cigarettes Alcohol Intake: never Drug use: Never Substance use type: does not use Do you feel safe at home: Yes Do you feel safe in your relationship?: Yes Exam Const General: no acute distress Orientation: alert HENMT Head: normal to inspection Ears: external ears normal General nose exam: external nose normal Mouth: moist mucous membranes Eyes General: appearance normal, both eyes and all related structures Neck Neck: normal visual inspection Resp Effort & Inspection: normal respiratory effort and able to speak in complete sentences Cardio Rate: regular rate Skin General skin exam: no rashes or lesions noted Neuro General: patient alert and patient oriented x3 Extrem General: normal to inspection Psych Mental Status: mental status grossly normal Course Vital Signs Vital signs: Vital Signs Temperature 36.9 C 01/27/20 00:26 Pulse 109 H 01/27/20 00:26 Respiratory Rate 18 01/27/20 00:26 Blood Pressure 142/99 H 01/27/20 00:26 Pulse Oximetry 97 01/27/20 00:26 Temperature 36.9 C 01/27/20 00:26 Temperature Source Oral 01/27/20 00:26 Pulse 109 H 01/27/20 00:26 Respiratory Rate 18 01/27/20 00:26 Respiratory Effort 01/27/20 00:34 Blood Pressure 142/99 H 01/27/20 00:26 Blood Pressure Position Sitting 01/27/20 00:26 Pulse Oximetry 97 01/27/20 00:26 Oxygen Delivery Method Room Air 01/27/20 00:26 Oxygen Flow Rate 0 01/27/20 00:26
--- NOTE | 2020-01-27 01:14 | DI.VRAD_ITS ---
PROCEDURE INFORMATION: Exam: CT Neck Without Contrast Exam date and time: 01/27/2020 12:41 AM Age: 34 years old Clinical indication: Mass, lump, or swelling in neck; Patient HX: Feels mass in throat TECHNIQUE: Imaging protocol: Computed tomography images of the neck without contrast. COMPARISON: No relevant prior studies available. FINDINGS: Nasopharynx: Unremarkable. Oropharynx: Unremarkable. No significant tonsillar enlargement. Hypopharynx: Unremarkable. Larynx: Unremarkable. Normal epiglottis. Retropharyngeal space: Question mild prominence at the C6-C7 level with possible small amount of fluid Submandibular/Parotid glands: Normal. Glands are normal in size. Thyroid: Normal. No enlarged or calcified nodules. Lymph nodes: Unremarkable. No lymphadenopathy. Trachea: Visualized trachea is unremarkable. Lungs: Unremarkable as visualized. Bones/joints: Reversal of cervical lordosis and degenerative changes in the mid to lower cervical spine No acute fracture. Soft tissues: No significant soft tissue swelling. Retropharyngeal course to the internal carotid arteries Polypoid mucosal thickening in the maxillary sinuses. IMPRESSION: Question prominence of the retropharyngeal tissue/possible fluid. Consider contrast enhanced CT of the neck to exclude small abscess in the retropharyngeal space Reversal of the cervical lordosis which may be degenerative or related to muscle spasm. Dictated and Authenticated by: Reese Grimaldo MD. Ordering:DAVID Mullen MD
[2020-01-27] MEDS: Normal Saline - Diluent 50 ML VIAL IV (01:55)
[2020-01-27] MEDS: Omnipaque 350 MG/ML 100 ML BTL IJ (01:55)
--- NOTE | 2020-01-27 02:01 | DI.VRAD_ITS ---
PROCEDURE INFORMATION: Exam: CT Neck With Contrast Exam date and time: 01/27/2020 1:43 AM Age: 34 years old Clinical indication: Abnormal findings; Abnormal radiologic study of neck; Patient HX: ? Retropharyngeal abscess TECHNIQUE: Imaging protocol: Computed tomography images of the neck with intravenous contrast. COMPARISON: CT NECK WO 01/27/2020 12:49 AM FINDINGS: Nasopharynx: Unremarkable. Oropharynx: Unremarkable. No significant tonsillar enlargement. Hypopharynx: Unremarkable. Larynx: Unremarkable. Normal epiglottis. Retropharyngeal space: Unremarkable. Submandibular/Parotid glands: Normal. Glands are normal in size. Thyroid: Normal. No enlarged or calcified nodules. Lymph nodes: Unremarkable. No lymphadenopathy. Trachea: Visualized trachea is unremarkable. Lungs: Unremarkable as visualized. Bones/joints: Grossly stable with reversal of cervical lordosis and degenerative changes as previously described No acute fracture. Soft tissues: Unremarkable. No significant soft tissue swelling. IMPRESSION: No retropharyngeal collection detected Grossly stable reversal of the cervical lordosis as previously noted which may be degenerative or related to muscle spasm Dictated and Authenticated by: Reese Grimaldo MD. Ordering:DAVID Mullen MD
[2020-01-27 02:12] VITALS: BP 168/74; PULSE 64; RESP 18; TEMP 36.6; O2SAT 96
== END 2020-01-27 02:25 | disposition home or self-care (01) ==
LOC: ER 02:27
PROVIDERS: Emergency Provider Emergency Medicine; PCP Family Medicine
DX: M54.2 Cervicalgia (principal); F17.210 Nicotine dependence, cigarettes, uncomplicated
CPT/HCPCS: 70491; 80053; 99285; 70490; 85025; 99283; J3490

== ENCOUNTER 2020-02-06 00:35 | Outpatient (CLI) | payer MEDICAID, SELFPAY ==
--- NOTE | 2020-02-06 | DI.US_ITS ---
EXAM: US SOFT TISSUE HEAD OR NECK CLINICAL HISTORY: NECK MASS, R22.1. TECHNIQUE: Ultrasound was performed using standard protocol. COMPARISON: No exams were available for comparison FINDINGS: Sonographic assessment utilizing grayscale and color Doppler imaging was performed and targeted to th e area of clinical concern. No cystic or solid masses are seen sonographically. IMPRESSION: No cystic or solid masses are seen in the left neck. DATA REPOSITORY:
== END 2020-02-06 00:55 ==
PROVIDERS: PCP Family Medicine; Visit Provider Physician Assistant Medical
DX: R22.1 Localized swelling, mass and lump, neck (principal)
CPT/HCPCS: 76536

== ENCOUNTER 2020-02-06 14:31 | Emergency (ER) | payer MEDICAID, SELFPAY ==
--- NOTE | 2020-02-06 15:16 | ED.GENADUL_ITS ---
Discharge Plan Disposition Patient Disposition: OTHER Condition: Stable Discharge Details Chief Complaint: GenMedical Clinical Impression: Schizophrenia Primary Care Provider: Shelby Rankin V ED Provider: Carol Eden Home Meds and New Rx's Prescriptions: Continued ibuprofen 800 mg Tablet 800 mg PO TID PRNRF: 0 clozapine 100 mg Tablet 200 mg PO HS RF: 0 omeprazole 20 mg Capsule,Delayed Release(Dr/Ec) 20 mg PO DAILY RF: 0 hydroxyzine HCl 25 mg Tablet 25 mg PO BID PRNRF: 0 diazepam 10 mg Tablet 10 mg PO BID PRNRF: 0 olanzapine 20 mg Tablet 20 mg PO QHS RF: 0 Discharge Instructions Additional Instructions: Patient has been cleared to go to care bed. Please continue medications as previously prescribed. If you develop new or worsening symptoms please seek ca re urgently once again. Follow-up with primary care as needed. Referrals: Shelby Rankin MD [Primary Care Provider] - Discharge Data Discharge Date/Time-TO BE ENTERED AT DEPARTURE: 02/06/20 18:59 Medical Decision Making <Odalis Gaona - Last Filed: 02/07/20 22:20> 34-year-old male with a history of schizophrenia presents to the ED because God told me I have coronavirus patient sent here by Ever caregiver, for medical clearance and Covid testing per care management. Patient denies suicidal ideation or homicidal ideation at this time. He is calm and cooperative in the room. 1500: manager environmental health and safety in department who reports that caregiver sent patient here for medical clearance to be sent to a care facility. She is requesting Pepito testing and labs, patient has not taken his medications for the last 2 days so will order olanzapine. 1700: Care to be handed off to oncoming provider GERONIMO Javed pending medical clearance, and discharge with disposition to caregiver Ever to be transported to snf. district plant supervisor, Erica states that police will take him to the snf. <GERONIMO Javed - Last Filed: 02/07/20 10:56> Care transition to myself from Faith Lopez NP. Please see her initial report regarding his presentation history. In brief, patient presents for medical clearance prior to going to care bed placement. Patient is resting comfortably. Eating and drinking the department. His labs are reviewed. No significant abnormality. Patient is positive for THC. COVID 19 testing is performed and is pending. Patient has been medically cleared, will contact his GEOPHYSICAL OBSERVER manager spring and obtain transportation for patient to go to his assigned facility. HPI <Odalis Gaona - Last Filed: 02/07/20 22:20> General Mode of arrival: ambulatory . Date/Time Provider Initiated Documentation: 02/06/20 14:42 . Limitations to Documentation: altered mental status . Information obtained by: patient . HPI Narrative: 34-year-old male with a history of schizophrenia presents to the ED because God told me I have coronavirus patient sent here by Ever wong, for medical clearance and Covid testing per care management. Patient denies suicidal ideation or homicidal ideation at this time. He is calm and cooperative in the room. Related Data Home Medications Medication Instructions Recorded Confirmed clozapine 200 mg PO HS 06/26/19 01/27/20 diazepam 10 mg PO BID PRN 06/26/19 01/27/20 hydroxyzine HCl 25 mg PO BID PRN 06/26/19 01/27/20 ibuprofen 800 mg PO TID PRN 06/26/19 01/27/20 olanzapine 20 mg PO QHS 06/26/19 01/27/20 omeprazole 20 mg PO DAILY 06/26/19 01/27/20 Allergies Allergy/AdvReac Type Severity Reaction Status Date / Time No Known Allergies Allergy Unverified 09/29/19 07:02 General JOHN: 4 Review of Systems <Odalis Gaona - Last Filed: 02/07/20 22:20> Narrative: Constitutional: Negative for weight loss, alert and oriented, well groomed, obese body habitus, appears comfortable. HEENT: Denies trauma, headaches, blurry vision, nasal discharge, sore throat, trouble swallowing. Chest: Denies chest pain, palpitations, irregular rhythm, hypertension. Respiratory: Denies Shortness of breath, cough, hemoptysis. GI: Denies abdominal pain, nausea, vomiting, diarrhea, constipation. : Denies dysuria, hematuria, flank pain, rectal bleeding. Psychiatric: See below Neuro: Denies dizziness, blurry vision, weakness, syncope, headache or facial numbness. Hematologic: Denies easy bruising, intolerance to heat or cold, hair loss. All systems reviewed & are unremarkable except as noted in HPI and below Psychiatric Psychiatric: Reports as per HPI, Reports abnormal sleep pattern (Patient states he has not slept for the last 2 days), Reports difficulty concentrating, Reports auditory hallucinations, Denies homicidal ideation and Denies suicidal ideation PFSH <Odalis Gaona - Last Filed: 02/07/20 22:20> Social History Smoking/Tobacco Use Status: Current every day Tobacco Type: cigarettes Alcohol Intake: never Drug use: Never Substance use type: does not use Do you feel safe at home: Yes Do you feel safe in your relationship?: Yes Exam <Odalis Gaona - Last Filed: 02/07/20 22:20> Narrative Exam Narrative: Constitutional: Alert and oriented x3. Appears stated age. Obes e l body habitus. Head: Normocephalic, no trauma. Eyes: Pupils PERRLA, Red reflex noted, EOM's intact. Eyelids symmetrical without lesions, discharge, or swelling. ENT: Bilateral TM's WNL, External ear normal to inspection, no mastoid TTP, swelling, or erythema, Nasal turbinates WNL, no nasal discharge. Normal dentition, Posterior pharynx WNL, no exudate. Chest: RRR, Normal S1, S2, distal pulses intact. Resp: Lungs clear to auscultation bilaterally, no wheezes, rales, or rhonchi. Musculoskeletal: Normal gait, 5/5 strength to all four extremities. Skin: Has a superficial abrasion noted to his left inner forearm, states he fell in the parking lot prior to arrival, capillary refill less than 2 sec. Neurologic: Cranial nerves II-XII intact. Alert and oriented x 3. DTR's intact. Hematologic/Lymphatic: No ecchymosis, no lymphadenopathy. Psych Appearance: well kempt Speech and Movement: delayed speech and slowed movement Mood: labile mood Affect: labile affect Attitude: cooperative Thought Process: loose association Thought Content: hallucinations (States God told me I have costa) auditory Insight: limited Judgment: limited Sign Out <Odalis Gaona - Last Filed: 02/07/20 22:20> Sign Out Data: Sign Out Comment: Pending Pepito testing, lab results, discharged snf Last updated by Odalis Gaona at 02/06/20 17:03
[2020-02-06 15:22] VITALS: BP 125/77; PULSE 67; RESP 18; TEMP 36.6; O2SAT 100
[2020-02-06 15:42] LABS: Abs Immature Grans 0.02 k/cumm (0.0-0.09); Absolute Basophil Count 0.02 k/cumm (0.0-0.2); Absolute Eosinophil Count 0.08 k/cumm (0.0-0.7); Absolute Lymphocyte Count 1.48 k/cumm (1.2-3.4); Absolute Monocyte Count 0.75 k/cumm (0.11-0.7); Absolute Neutrophil Count 7.89 k/cumm (1.2-6.7); Basophils % 0.2; Eosinophils % 0.8; HCT 41.1 % (40.0-50.0); HGB 13.7 g/dL (13.5-17.5); Immature Grans % 0.2 %; Lymphocytes % 14.5; Mean Corp. HGB Concentration 33.3 g/dL (32.0-36.0); Mean Corpuscular Volume 80.9 fL (80-95); Mean Platelet Volume 9.4 fL (8.0-11.0); Monocytes % 7.3; Platelet Count 276 x1000/uL (130-400); RBC 5.08 m/cumm (4.50-6.00); RBC Distribution Width 15.6 % (11.8-14.1); White Blood Cell Count 10.24 k/cumm (4.4-10.8)
[2020-02-06 15:59] LABS: ALT 33 U/L (16-63); AST 24 U/L (15-37); Alkaline Phosphatase 89 U/L (46-116); Anion Gap 10.7 mmol/L (3-11); BUN 8 mg/dL (7-18); Bilirubin, Total 0.6 mg/dL (0.2-1.0); CO2 25.3 mmol/L (21.0-32.0); Calcium 8.7 mg/dL (8.5-10.1); Chloride 104 mmol/L (98-107); Glucose 98 mg/dL (74-106); Potassium 3.9 mmol/L (3.5-5.1); Sodium 140 mmol/L (136-145); Total Protein 7.4 g/dL (6.4-8.2)
[2020-02-06 16:06] LABS: CREATININE 0.98 mg/dL (0.70-1.30)
[2020-02-06 16:41] LABS: Acetaminophen < 2 ug/mL (10-30); Salicylate 5.1 mg/dL (2.8-20.0)
[2020-02-06 16:50] LABS: TSH 0.78 uIU/mL (0.36-3.74)
[2020-02-06 17:23] LABS: Tricyclic Antidepressants Negative (Negative)
[2020-02-06 17:25] LABS: *AMPHETAMINES SCREEN URINE Negative (Negative); *BARBITURATES SCREEN URINE Negative (Negative); *BENZODIAZEPINES SCREEN URINE Negative (Negative); Cannabinoids THC POSITIVE (Negative); Cocaine Screen,Urine Negative (Negative); METHADONE URINE SCREEN Negative (Negative); OPIATES URINE SCREEN Negative (Negative)
[2020-02-07 01:25] LABS: COVID-19 RT-PCR UVMMC Result Negative (Negative)
== END 2020-02-06 18:59 | disposition other institution (70) ==
PROVIDERS: Registered Nurse Emergency; Emergency Provider Physician Assistant; PCP Family Medicine
DX: F23 Brief psychotic disorder (principal); T43.596A Underdosing of other antipsychotics and neuroleptics, initial encounter; Z91.128 Patient's intentional underdosing of medication regimen for other reason; R44.0 Auditory hallucinations
CPT/HCPCS: 36415; 36416; 80053; 80307; 82962; 99284; U0003; 80329; 83735; 84443; 85025; 99283

== ENCOUNTER 2020-02-09 18:06 | Emergency (ER) | payer MEDICAID, SELFPAY ==
[2020-02-09 18:08] VITALS: BP 107/84; PULSE 105; RESP 16; TEMP 36.6; O2SAT 99
--- NOTE | 2020-02-09 18:56 | W.ED.GENAD ---
Discharge Plan Disposition Patient Disposition: HOME Condition: Stable Discharge Details Chief Complaint: PsychEval Clinical Impression: Schizophrenia Primary Care Provider: Shelby Rankin V ED Provider: Miller León Home Meds and New Rx's Prescriptions: Continued ibuprofen 800 mg Tablet 800 mg PO TID PRNRF: 0 clozapine 100 mg Tablet 200 mg PO HS RF: 0 omeprazole 20 mg Capsule,Delayed Release(Dr/Ec) 20 mg PO DAILY RF: 0 hydroxyzine HCl 25 mg Tablet 25 mg PO BID PRNRF: 0 diazepam 10 mg Tablet 10 mg PO BID PRNRF: 0 olanzapine 20 mg Tablet 20 mg PO QHS RF: 0 Discharge Instructions Instructions: Schizophrenia (ED) Additional Instructions: At this time you tell me that you are not feeling suicidal and that you are feeling safe to be discharged back to your residence. We have been able to set up a ride through the RCT program. Please watch for new or worsening symptoms and return to the ER for any concerns. I would recommend that you follow the plan set forward by the SUPERVISOR UNLOADING team. Medical Decision Making 34-year-old gentleman who is a rather vague and poor historian presents reporting vague suicidal ideation, rather chronic in nature, no active plan. He also reports that he is concerned that his father may be trying to cut off his penis. He denies recent illness or trauma. I was able to review his note from 3 days ago, laboratory values, and disposition to the care bed. At this time I see nothing that would inhibit a medical clearance, I do not believe that I need to reflexively order laboratory values again when he had them done just 3 days ago. I have called for a CPSO, care management, [facility] evaluation. CPSO at 5. Upon reevaluation awaiting mental health screening evaluation. Patient now tells me he was just angry and is not actually suicidal. I was able to speak with care management took a safety plan into place. I was then able to speak with [facility] who then sent to me to speak with our SUPERVISOR UNLOADING team, Alex. She evaluated the patient and did not feel as though the patient would require inpatient hospitalization. Patient was able to verbalize to me that he was no longer feeling suicidal and that he did feel safe now. We will reach out to [facility] to get him back to his residence. He will follow the plan set forth by the SUPERVISOR UNLOADING team. Patient without additional questions or concerns. HPI General Mode of arrival: EMS. Date/Time Provider Initiated Documentation: 02/09/20 18:06. Limitations to Documentation: no limitations. Information obtained by: patient and EMS. HPI Narrative: This is a 34-year-old gentleman with history of schizophrenia, GERD, presenting to the ER via EMS for suicidal ideation. He reports this is chronic but worse today. He has no plan and has done nothing to harm himself today. He reports I would like to join my mother who is in heaven. I used to think she was a quadriplegic but now I think she is in heaven. Patient also reports that he is feeling paranoid that his father may try to cut off his penis. He denies any altercation with his father and cannot explain to me why he is concerned about this. He denies recent illness or trauma. He denies headache, neck pain, chest pain, fever, cough, shortness of breath abdominal pain, back pain, nausea vomiting, change in bowel or bladder function, numbness, tingling, weakness. Patient denies any homicidal ideation. Related Data Home Medications Medication Instructions Recorded Confirmed clozapine 200 mg PO HS 06/26/19 02/09/20 diazepam 10 mg PO BID PRN 06/26/19 02/09/20 hydroxyzine HCl 25 mg PO BID PRN 06/26/19 02/09/20 ibuprofen 800 mg PO TID PRN 06/26/19 02/09/20 olanzapine 20 mg PO QHS 06/26/19 02/09/20 omeprazole 20 mg PO DAILY 06/26/19 02/09/20 Allergies Allergy/AdvReac Type Severity Reaction Status Date / Time No Known Allergies Allergy Unverified 02/09/20 18:17 General Stated Complaint: PsychEval JOHN: 2 Review of Systems Constitutional Constitutional: Denies fatigue, Denies fever(s) and Denies weakness Eyes Eyes: Denies change in vision ENT Ears, Nose, Mouth, and Throat: Denies neck pain Cardiovascular Cardiovascular: Denies chest pain and Denies dyspnea Respiratory Respiratory: Denies cough and Denies dyspnea Gastrointestinal Gastrointestinal: Denies abdominal pain, Denies nausea and Denies vomiting Genitourinary Genitourinary: Denies dysuria Musculoskeletal Musculoskeletal: Denies back pain, Denies neck pain, Denies numbness and Denies tingling Integumentary/Breasts Skin/Breast: Denies rash Neurologic Neurologic: Denies numbness, Denies tingling and Denies weakness Psychiatric Psychiatric: Denies homicidal ideation and Reports suicidal ideation Endocrine Endocrine: Denies fatigue [facility] Social History Smoking/Tobacco Use Status: Current every day Tobacco Type: cigarettes Alcohol Intake: never Drug use: Occasionally Substance use type: marijuana In current or past relationships, have you been: threatened Do you feel safe at home: No Do you feel safe in your relationship?: No Additional Social history: threatened by father, hearing voices. the voices won't let me sleep. Exam Const General: cooperative, healthy appearing, comfortable and no acute distress Orientation: alert, awake and oriented x3 HENMT Head: normal to inspection, normocephalic and atraumatic Face and sinus: normal facial exam Mouth: moist mucous membranes Throat: posterior oropharynx normal Eyes General: appearance normal, both eyes and all related structures Alignment and Position: alignment normal Periorbital: periorbital findings normal Eyelids: eyelids normal Conjunctivae: conjunctivae normal Sclera: sclerae normal Cornea: corneas normal Pupils: PERRL EOM: EOM intact bilaterally Direct ophthalmoscopy: normal light reflex Neck Neck: normal visual inspection, full ROM, no meningeal signs, trachea midline, supple and nontender Resp Effort & Inspection: normal respiratory effort and able to speak in complete sentences Auscultation: clear to auscultation bilaterally Cardio Rate: regular rate Rhythm: regular rhythm GI Palpation: soft and nontender Back/Spine/Pelvis Back: No back tenderness Skin General skin exam: no rashes or lesions noted Neuro General: patient alert, patient awake, patient oriented x3, moves all extremities and no focal motor deficits Cranial Nerves: CN's II-XI intact bilaterally Speech: speech normal Gait: normal gait Sensory Exam: no sensory deficits noted Extrem General: normal to inspection, full ROM and capillary refill normal Psych Appearance: grossly normal Speech and Movement: pressured speech Mood: paranoid Affect: irritable affect Attitude: cooperative Thought Process: flight of ideas Thought Content: suicidality (Mild, vague, no plan) Insight: limited Judgment: limited Course Vital Signs Vital signs: Vital Signs Temperature 36.6 C 02/09/20 18:08 Pulse 105 H 02/09/20 18:08 Respiratory Rate 16 02/09/20 18:08 Blood Pressure 107/84 02/09/20 18:08 Pulse Oximetry 99 02/09/20 18:08 Temperature 36.6 C 02/09/20 18:08 Temperature Source Tympanic 02/09/20 18:08 Pulse 105 H 02/09/20 18:08 Respiratory Rate 16 02/09/20 18:08 Respiratory Effort Non-Labored 02/09/20 18:12 Blood Pressure 107/84 02/09/20 18:08 Blood Pressure Position Sitting 02/09/20 18:08 Pulse Oximetry 99 02/09/20 18:08 Oxygen Delivery Method Room Air 02/09/20 18:08 Oxygen Flow Rate 0 02/09/20 18:08 Pain Level 0 02/09/20 18:08
--- NOTE | 2020-02-09 19:08 | PDOC.CMSAFED ---
- If Service Date Differs Date of service: 02/09/20 Time of Service: 19:08 Care Management Safety Plan 18:30 ALESSANDRA was paged by ED to be alerted of a MH pt in the ED who will need a safety plan in place. Luke arrived by ambulance reporting suicidal ideation. He is requesting psychiatric stabilization. He was seen in the ED on 02/06/20 for medical clearance to be placed in the care bed. BRIDGER has been paged, and the DIRECTOR OF SAFETY AND SECURITY classification case manager supervisor electronics inspection will send an invite for a ZOOM meeting in order to evaluate the patient. Disposition to be determined at this time. 19:30 ALESSANDRA spoke with EMILY Johnson, who evaluated Rakesh via ZOOM in the ED. Alex stated that Rakesh is not currently suicidal/homicidal, and that he reports that he was just angry with the other people at the [facility]. Rakesh is currently residing at the [facility] in [place]. He has an appointment to view an apartment of his own on Tuesday, which he is looking forward to. Per provider, he is now denying SI/HI. Rakesh will return to the [facility] via RCT (coordinated by ED staff). Alex will follow up with him tomorrow, and he will be followed closely by DIRECTOR OF SAFETY AND SECURITY in the community. VOLUNTARY FOR INPATIENT PSYCHIATRIC STABILIZATION. Patient is appropriate in all interactions since arriving at [facility]; Pt has demonstrated appropriate coping and communication skills, has articulated his or her needs and concerns and is fully engaged during staff interactions. Safety plan has been established with patient, and care team, to adhere to patient goals, identify restrictions based on behavioral status, address nutrition, and determine allowed personal belongings, tools for hygiene and personal care. Determine level of activity including ambulation, level of supervision, visitors, and determine privileges based on behaviors and level of engagement by pt. SAFETY PLAN: 1. Will remain on suicide precautions. In Paper Clothes 2. Will remain in room under direct supervision of one-on-one staff at all times provided by CPSO; DARIA, SENIOR SERVICE AIDE childcare worker. 3. May have paper cups, plates, finger foods as well as a cardboard spoon with which to eat meals. 4. Follow [facility] Management of the Admitted Behavioral Health Patient policy. 5. Comfort bath system only. 6. No personal belongings 7. Visitors-No visitors at this time 8. Activities: 9. Bathroom privileges 10. Phone: No phone calls at this time, with the exception of his DIRECTOR OF SAFETY AND SECURITY classification case manager. 11. Due to VOLUNTARY status, if patient wishes to leave [facility], the [facility] civil service worker must be contacted to re-evaluate patient prior to patient exiting the building. Patient is currently voluntarily at [facility] and seeking inpatient admission when a bed becomes available. [facility] Frontline Supervisor [employer] will continue seeking placement. Please contact the Roll Setter Chart Reader ([phone]) and [facility] Supervisor [employer]le [employer] ([phone]) for any needed changes in the Safety Plan. Safety plan has been provided to interdepartmental care team.
--- NOTE | 2020-02-09 19:24 | PDOC.MHCN_ITS ---
Date of service: 02/09/20 Time of Service: 19:00 Mental Health Crisis Note Presenting Issue How did you arrive at the ED and why did you come: Client arrived via ambulance to the ED for suicidal ideation. Precipitating Factors Client denies SI/HI. He had trouble staying focused on the assessment. He reported he has been having trouble sleeping and feels angry. He is upset with the others also staying at the [facility]--he called them 'crazy'. He has been staying there for the last two weeks. He had a CARE Bed admission earlier this week. However, he became paranoid and distrustful of staff there and disc harged back to the [facility]. He stated he wants to get out of the [facility]. He shared he feels like everyone hates him right now and it makes him sad and angry. Disposition BEHAVIOR: Appropriate--however, called this screener 'pretty' EYE CONTACT: Poor MOOD: Upset, depressed AFFECT: Animated but facial expressions not always contextually appropriate. APPETITE: Unknown. SLEEP(trouble falling/staying asleep: Trouble sleeping Plan This screener spoke to Miller León MD, CLEO Askew and Tiny Ro, Sludge Control Operator. Client does not meet criteria for psychiatric hospitalization. The plan is to discharge the client back to the [facility] tonight via RCT ride. call or contact centre operator RAIL SPECIALIST vice president of customer service to check in with him in the morning and afternoon.
[2020-02-09 20:22] VITALS: BP 146/99; PULSE 100; RESP 14; TEMP 36.6
== END 2020-02-09 20:25 | disposition home or self-care (01) ==
PROVIDERS: Emergency Provider Physician Assistant; PCP Family Medicine
DX: F20.89 Other schizophrenia (principal); R45.851 Suicidal ideations
CPT/HCPCS: 99285; 99283

== ENCOUNTER 2020-03-26 03:07 | Outpatient (CLI) | payer MEDICAID, SELFPAY ==
[2020-03-26 13:13] LABS: Abs Immature Grans 0.05 10^3/uL (0.0-0.06); Absolute Basophil Count 0.06 10^3/uL (0.0-0.2); Absolute Eosinophil Count 0.09 10^3/uL (0.0-0.7); Absolute Lymphocyte Count 1.79 10^3/uL (1.2-3.4); Absolute Monocyte Count 0.83 10^3/uL (0.1-0.8); Basophils % 0.5; Eosinophils % 0.8; HCT 43.9 % (40.0-50.0); HGB 14.1 g/dL (13.5-17.5); Immature Grans % 0.4; Lymphocytes % 16.1; MCH 25.8 pg (27.0-33.0); MCHC 32.1 % (32.0-36.0); MCV 80.3 fL (80-95); MPV 9.1 fL (8.0-11.0); Monocytes % 7.5; Neutrophils % 74.7; Platelet Count 212 10^3/uL (130-400); RBC 5.47 10^6/uL (4.36-5.78); RDW 14.6 % (11.8-14.1); RDW-SD 41.9 fL; WBC 11.12 10^3/uL (4.4-10.8)
[2020-03-26 13:14] LABS: Absolute Neutrophil Count 8.31 10^3/uL (1.2-6.7)
== END 2020-03-26 03:27 ==
PROVIDERS: PCP Family Medicine; Visit Provider Family Medicine
DX: F20.9 Schizophrenia, unspecified (principal)
CPT/HCPCS: 36415; 85025

== ENCOUNTER 2020-04-01 10:35 | Outpatient (REF) | payer MEDICAID, SELFPAY ==
[2020-04-01 19:35] LABS: ALT 17 U/L (16-63); AST 9 U/L (15-37); Albumin 3.6 g/dL (3.4-5.0); Alkaline Phosphatase 90 U/L (46-116); BUN 12 mg/dL (7-18); Bilirubin, Total 0.2 mg/dL (0.2-1.0); CREATININE 0.78 mg/dL (0.70-1.30); Calcium 8.8 mg/dL (8.5-10.1); Chloride 105 mmol/L (98-107); Glucose 101 mg/dL (74-106); Potassium 4.2 mmol/L (3.5-5.1); Sodium 141 mmol/L (136-145); Total Protein 6.6 g/dL (6.4-8.2)
== END 2020-04-01 10:55 ==
LOC: NCHCN 10:35
PROVIDERS: PCP Family Medicine; Visit Provider Family Medicine
DX: M70.88 Other soft tissue disorders related to use, overuse and pressure other site (principal); R10.9 Unspecified abdominal pain
CPT/HCPCS: 80053; 83735

== ENCOUNTER 2020-04-15 12:26 | Emergency (ER) | payer MEDICAID, SELFPAY ==
[2020-04-15 12:27] VITALS: BP 134/90; PULSE 96; RESP 16; TEMP 36.5; O2SAT 96
--- NOTE | 2020-04-15 12:40 | ED.GENADUL_ITS ---
Discharge Plan Disposition Patient Disposition: HOME Condition: Stable Discharge Details Chief Complaint: PsychEval Clinical Impression: Suicidal ideation Primary Care Provider: Shelby Rankin V ED Provider: Odalis Gaona Home Meds and New Rx's Prescriptions: Continued ibuprofen 800 mg Tablet 800 mg PO TID PRNRF: 0 clozapine 100 mg Tablet 200 mg PO HS RF: 0 omeprazole 20 mg Capsule,Delayed Release(Dr/Ec) 20 mg PO DAILY RF: 0 hydroxyzine HCl 25 mg Tablet 25 mg PO BID PRNRF: 0 diazepam 10 mg Tablet 10 mg PO BID PRNRF: 0 olanzapine 20 mg Tablet 20 mg PO QHS RF: 0 furosemide 40 mg Tablet 40 mg PO DAILY RF: 0 Discharge Instructions Instructions: Help Prevent Suicide (ED) Additional Instructions: Follow-up tomorrow with care bed and RETIREMENT SALES CONSULTANT as previously instructed. Follow up with primary care provider in 3-5 days. Return to ED sooner if any worsening or concerns. Increase oral fluids. At this time we do recommend that you stay in the hospital and be admitted to the care bed in the morning however at this time you have decided that she want to go home rather than stay in hospital for admission. Stand Alone Forms: PENDING COVID-19 TESTING Referrals: Shelby Rankin MD [Primary Care Provider] - Medical Decision Making <Odalis Gaona - Last Filed: 04/15/20 15:36> 34-year-old male presents to the ER via EMS complaining of intermittent suicidal thoughts with no plan. He reports not being happy and receiving threats from other household members at his living situation he does live in a assisted type setting across from [facility] services, he is denying any auditory or visual hallucinations at this time. Does have a history of schizophrenia, morbid obesity and is a chronic smoker. He reports taking a hydroxyzine and omeprazole prior to arrival he reports that taking his medications as directed. He does see Teagan Mena which he reports is his psychiatrist. He denies any current vision disturbances, headache, pain, nausea vomiting diarrhea. Does report last night he had a coughing fit and was complaining of headache, none currently. 1300: Spoke with RETIREMENT SALES CONSULTANT regarding patient and she, Alex states they have a plan in place for patient to go to a care bed as soon as a negative covid test is re sulted. She requests a covid swab now. And she requests basic labs including CBC and BMP prior to admission to care bed. Until health evaluation ordered, mark, care management aware. 1407: Spoke with Luke at [facility], regarding whether patient can be discharged home pending COVID testing and acceptance of care better if the patient is requiring admission for observation overnight. He does not recommend patient to be discharged home at this time. COVID sample to be sent out until 6 PM tonight. Labs are largely within normal limits glucose is 132, urine drug screen is positive for benzodiazepines but negative for THC cocaine amphetamines, tricyclics, barbiturates, methadone or opiates. Urinalysis is within normal limits. Will page hospitalist regarding admission for observation pending placement care bed. 1418: Spoke with patient regarding plan of care, verbalizes understanding. Patient expresses anxiety about not being able to go smoke. Nicotine patch ordered at this time. Spoke with Luke from [facility] human services regarding patient's change of his mind stating he does not wish to be admitted at this time he does still wish to go to the care bed tomorrow but states just want to go to my room I will be fine. Per Luke was RETIREMENT SALES CONSULTANT we cannot force him to stay overnight in the hospital at this time, patient to be discharged home with RCT transport and plan to have patient go to care bed in a.m. if he still wishes. Mental health evaluation done by Alex with [employer]. This time is determined that patient is not a harm to self or others at this time denies any suicidal ideations prior to discharge. He is able to make his own decisions has mental capacity. Is alert and oriented x3 prior to discharge. <Sebas Burleson MD - Last Filed: 04/15/20 15:19> I had a [id number] encounter with the patient. I evaluated the patient. I discussed case with [employer]PA and I reviewed [employer] note and agree with note as documented HPI <Odalis Gaona - Last Filed: 04/15/20 15:36> General Mode of arrival: EMS . Date/Time Provider Initiated Documentation: 04/15/20 12:39 . Limitations to Documentation: no limitations . Information obtained by: patient and EMS . HPI Narrative: 34-year-old male presents to the ER via EMS complaining of intermittent suicidal thoughts with no plan. He reports not being happy and receiving threats from other household members at his living situation he does live in a assisted type setting across from [facility], he is denying any auditory or visual hallucinations at this time. Does have a history of schizophrenia, morbid obesity and is a chronic smoker. He reports taking a hydroxyzine and omeprazole prior to arrival he reports that taking his medications as directed. He does see Teagan Mena which he reports is his psychiatrist. He denies any current vision disturbances, headache, pain, nausea vomiting diarrhea. Does report last night he had a coughing fit and was complaining of headache, none currently. Related Data Home Medications Medication Instructions Recorded Confirmed clozapine 200 mg PO HS 06/26/19 04/15/20 diazepam 10 mg PO BID PRN 06/26/19 04/15/20 hydroxyzine HCl 25 mg PO BID PRN 06/26/19 04/15/20 ibuprofen 800 mg PO TID PRN 06/26/19 04/15/20 olanzapine 20 mg PO QHS 06/26/19 04/15/20 omeprazole 20 mg PO DAILY 06/26/19 04/15/20 furosemide 40 mg PO DAILY 04/15/20 04/15/20 Allergies Allergy/AdvReac Type Severity Reaction Status Date / Time No Known Allergies Allergy Unverified 04/15/20 12:37 General Stated Complaint: PsychEval JOHN: 2 Review of Systems <Odalis Gaona - Last Filed: 04/15/20 15:36> Narrative: Constitutional: Negative for weight loss, alert and oriented, well groomed, normal body habitus, appears comfortable. HEENT: Denies trauma, headaches, blurry vision, nasal discharge, sore throat, trouble swallowing. Chest: Denies chest pain, palpitations, irregular rhythm, hypertension. Respiratory: Denies Shortness of breath, cough, hemoptysis. GI: Denies abdominal pain, nausea, vomiting, diarrhea, constipation. : Denies dysuria, hematuria, flank pain, rectal bleeding. Neuro: Denies dizziness, blurry vision, weakness, syncope, headache or facial numbness. Hematologic: Denies easy bruising, intolerance to heat or cold, hair loss. PFSH <Odalis Gaona - Last Filed: 04/15/20 15:36> Social History Smoking/Tobacco Use Status: Current every day Tobacco Type: cigarettes Alcohol Intake: never Drug use: Occasionally Substance use type: marijuana In current or past relationships, have you been: threatened Do you feel safe at home: No Do you feel safe in your relationship?: No Additional Social history: hearing voices. the voices won't let me sleep.--feels threatened by people in house where he lives Exam <Odalis Gaona - [facility] Filed: 04/15/20 15:36> Narrative Exam Narrative: Constitutional: Alert and oriented x3. Appears stated age. Obese body habitus. Head: Normocephalic, no trauma. Eyes: Pupils PERRLA, Red reflex noted, EOM's intact. Eyelids symmetrical without lesions, discharge, or swelling. ENT: Bilateral TM's WNL, External ear normal to inspection, no mastoid TTP, swelling, or erythema, Nasal turbinates WNL, no nasal discharge. Normal dentition, Posterior pharynx WNL, no exudate. Chest: RRR, Normal S1, S2, distal pulses intact. Resp: Lungs clear to auscultation bilaterally, no wheezes, rales, or rhonchi. Musculoskeletal: Normal gait, 5/5 strength to all four extremities. Skin: No suspicious rashes or lesions. Capillary refill less than 2 sec. Neurologic: Cranial nerves II-XII intact. Alert and oriented x 3. DTR's intact. Hematologic/Lymphatic: No ecchymosis, no lymphadenopathy. Psych Appearance: disheveled Speech and Movement: speech and movement normal Mood: euphoric mood Affect: normal affect Attitude: cooperative Thought Process: normal Thought Content: suicidality (Thoughts with no plan) Insight: fair and limited Judgment: fair Course <Odalis Gaona - [facility] Filed: 04/15/20 15:36> Vital Signs Vital signs: Vital Signs Temperature 36.5 C 04/15/20 12:27 Pulse 96 H 04/15/20 12:27 Respiratory Rate 16 04/15/20 12:27 Blood Pressure 134/90 04/15/20 12:27 Pulse Oximetry 96 04/15/20 12:27 Temperature 36.5 C 04/15/20 12:27 Temperature Source Temporal Artery Scan 04/15/20 12:27 Pulse 96 H 04/15/20 12:27 Respiratory Rate 16 04/15/20 12:27 Blood Pressure 134/90 04/15/20 12:27 Blood Pressure Position Sitting 04/15/20 12:27 Pulse Oximetry 96 04/15/20 12:27 Oxygen Delivery Method Room Air 04/15/20 12:27 Oxygen Flow Rate 0 04/15/20 12:27
--- NOTE | 2020-04-15 13:14 | PDOC.CMSAFED ---
- If Service Date Differs Date of service: 04/15/20 Time of Service: 13:14 Care Management Safety Plan Chief Complaint: Luke Machado is a 34 year old male who presents in the ED via ambulance due to not feeling safe at home. Rakesh called CM mid-morning to report he was feeling suicidal. He lives in a long term setting and he shared that other residents are mean to him, telling him he should kill himself. He went on to say he is schizophrenic and the stress of living in that home is causing a worsening of his auditory hallucinations. Rakesh told CM he feared he would act on the suicidal thoughts. Rakesh receives services through the WATER POLLUTION CONTROL TECHNICIAN Program at [facility] and his skilled nursing case manager is Luke Meneses. With his permission, CM contacted Alex, the WATER POLLUTION CONTROL TECHNICIAN point person at [facility], to request they outreach to Rakesh and evaluate him for safety. Alex spoke with Rakesh on the telephone and he subsequently was transported to the ED via EMS. Alex, [facility] WATER POLLUTION CONTROL TECHNICIAN crisis screener, advises the plan if for Rakesh to discharge to the [facility] Care Bed as soon as a negative Covid test is received. VOLUNTARY FOR INPATIENT PSYCHIATRIC STABILIZATION. Patient is appropriate in all interactions since arriving at [facility]; Pt has demonstrated appropriate coping and communication skills, has articulated his needs and concerns and is fully engaged during staff interactions. Safety plan has been established with patient, and care team, to adhere to patient goals, identify restrictions based on behavioral status, address nutrition, and determine allowed personal belongings, tools for hygiene and personal care. Determine level of activity including ambulation, level of supervision, visitors, and determine privileges based on behaviors and level of engagement by pt. SAFETY PLAN: 1. Will remain on suicide precautions. In Paper Clothes 2. Will remain in room under direct supervision of one-on-one staff at all times provided by [employer]; DARIA, RN NIGHT [employer] history professor. 3. May have paper cups, plates, finger foods as well as a cardboard spoon with which to eat meals. 4. Follow [facility] Management of the Admitted Behavioral Health Patient policy. 5. Comfort bath system only. 6. No personal belongings 7. Visitors-No visitors at this time. 8. Activities: None currently. Will be allowed television if moved to Med/Surg. 9. Bathroom privileges: While in the ED, must be accompanied by staff. If patient is moved to Med/Surg, he will be allowed to use the bathroom in his room without supervision. 10. Phone: No phone privileges at this time. 11. Due to VOLUNTARY status, if patient wishes to leave [facility], the [facility] vegetable harvest worker must be contacted to re-evaluate patient prior to patient exiting the building. Patient is currently voluntarily at [facility] and seeking inpatient admission when a bed becomes available. [facility] Frontline Facs Teacher will continue seeking placement. Please contact the Clinic Supervisor V Belt Curer ([phone]) and [facility] Facs Teacher ([phone]) for any needed changes in the Safety Plan. Safety plan has been provided to interdepartmental care team.
[2020-04-15 13:33] LABS: Abs Immature Grans 0.07 10^3/uL (0.0-0.06); Absolute Basophil Count 0.07 10^3/uL (0.0-0.2); Absolute Eosinophil Count 0.14 10^3/uL (0.0-0.7); Absolute Lymphocyte Count 1.82 10^3/uL (1.2-3.4); Absolute Monocyte Count 0.67 10^3/uL (0.1-0.8); Absolute Neutrophil Count 7.25 10^3/uL (1.2-6.7); Basophils % 0.7; Eosinophils % 1.4; HCT 40.9 % (40.0-50.0); HGB 13.4 g/dL (13.5-17.5); Immature Grans % 0.7; Lymphocytes % 18.2; MCHC 32.8 % (32.0-36.0); MCV 79.3 fL (80-95); MPV 9.2 fL (8.0-11.0); Monocytes % 6.7; Neutrophils % 72.3; Nucleated RBC 0 %; Platelet Count 210 10^3/uL (130-400); RBC 5.16 10^6/uL (4.36-5.78); RDW 15.2 % (11.8-14.1); RDW-SD 42.7 fL; WBC 10.02 10^3/uL (4.4-10.8)
[2020-04-15 13:42] LABS: Bilirubin Negative (Negative); Blood Negative (Negative); Clarity Clear (Clear); Glucose Negative (Negative); Ketones Negative (Negative); Leukocyte Esterase Negative (Negative); Nitrite Negative (Negative); Specific Gravity 1.025 (1.005-1.025); Urobilinogen 0.2 EU/dL (Up TO 0.2); pH 5.5 (5-8)
[2020-04-15 13:44] LABS: BUN 10 mg/dL (7-18); CREATININE 0.93 mg/dL (0.70-1.30); Calcium 8.7 mg/dL (8.5-10.1); Chloride 104 mmol/L (98-107); Glucose 132 mg/dL (74-106); Potassium 3.5 mmol/L (3.5-5.1); Sodium 141 mmol/L (136-145)
--- NOTE | 2020-04-15 13:44 | PDOC.MHCN ---
Date of service: 04/15/20 Time of Service: 13:00 Mental Health Crisis Note Presenting Issue How did you arrive at the ED and why did you come: Client arrived to the ED via state police for a psychiatric evaluation. Precipitating Factors Client denied SI/HI. Client stated he was doing much better than earlier today. Client is unhappy where he is currently living. He had been working with his International Nurse Luke Meneses [facility] to address the issues of his current living situation. Disposition BEHAVIOR: Calm, appropriate, pleasant. EYE CONTACT: Good. MOOD: Calm. AFFECT: Animated, appropriate. APPETITE: N/A SLEEP(trouble falling/staying asleep: N/A Plan This screener spoke with Odalis Gaona NP concerning the client. The plan is to have a OCVID-19 test administered and lab work done to medically clear him. He will discharge to the CAREbed pending COVID-19 and lab results. Signature Clinician's Name/Title: Alex Parham BA (Ana) [facility]
[2020-04-15 14:06] LABS: *AMPHETAMINES SCREEN URINE Negative (Negative); *BARBITURATES SCREEN URINE Negative (Negative); *BENZODIAZEPINES SCREEN URINE POSITIVE (Negative); Cannabinoids THC Negative (Negative); Cocaine Screen,Urine Negative (Negative); METHADONE URINE SCREEN Negative (Negative); OPIATES URINE SCREEN Negative (Negative)
[2020-04-15 14:07] LABS: Tricyclic Antidepressants Negative (Negative)
[2020-04-15 15:10] VITALS: BP 136/64; PULSE 68; RESP 22; TEMP 36.5; O2SAT 97
--- NOTE | 2020-04-15 15:32 | NUR.NOTE ---
Nursing Note: IA home with [facility]
--- NOTE | 2020-04-15 16:33 | NUR.NOTE ---
Nursing Note: At [facility] request patrick vargas MD note to the Care Bed. Faith Norman Fax [phone]
[2020-04-16 08:22] LABS: COVID-19 RT-PCR UVMMC Result Negative (Negative)
== END 2020-04-15 15:31 | disposition home or self-care (01) ==
PROVIDERS: Emergency Provider Registered Nurse Emergency; PCP Family Medicine
DX: F20.89 Other schizophrenia (principal); R45.2 Unhappiness; R45.851 Suicidal ideations; Z03.818 Encounter for observation for suspected exposure to other biological agents ruled out
CPT/HCPCS: 80048; 80307; 99283; U0003; 81003; 85025

== ENCOUNTER 2020-04-28 01:59 | Outpatient (CLI) | payer MEDICAID, SELFPAY ==
--- NOTE | 2020-04-28 | DI.US_ITS ---
APPROVED REPORT EXAM: Comprehensive 2D, Doppler, and color-flow Echocardiogram Patient Location: Out-Patient Rebar Bender: Deisy Guajardo RDCS (AE) Indications: Swelling limbs, Clozapine use Other Information Technically limited study due to body habitus. Conclusion Technically difficult study Normal left ventricular wall thickness and chamber size. Estimated ejection fraction of 55 to 60%. There are no segmental wall motion abnormalities Normal right ventricular size and systolic function Normal left atrial size. Right atrium not well visualized Aortic valve is not well visualized. No aortic stenosis or regurgitation Mildly thickened mitral leaflets with trace regurgitation Structurally normal tricuspid valve with trace regurgitation Pulmonic valve not well visualized Wall motion Left Ventricle The left ventricle is normal size. The left ventricular systolic function is normal. The left ventric ular ejection fraction is within the normal range. There is normal left ventricular wall thickness. T here is normal LV segmental wall motion. There is no ventricular septal defect visualized. LVEF is 55 -60%. Right Ventricle The right ventricle is normal size. The right ventricular systolic function is normal. Atria The left atrium size is normal. Right atrium is not well visualized. The interatrial septum is intact with no evidence for an atrial septal defect. Aortic Valve The aortic valve is not well visualized. There is no aortic valvular stenosis. No aortic regurgitatio n is present. Mitral Valve Mildly thickened mitral leaflets No evidence of mitral valve stenosis. Trace mitral regurgitation. Tricuspid Valve Tricuspid valve is grossly normal in structure and function. There is no tricuspid valve stenosis. Tr irais tricuspid regurgitation. Unable to assess PA pressure. Pulmonic Valve Pulmonic valve is not well visualized. There is no pulmonic valvular stenosis. There is no pulmonic v alvular regurgitation. Great Vessels The aortic root is normal in size. The ascending aorta is mildly dilated. Aortic arch is not well vis ualized. IVC is normal in size and collapses >50% with inspiration. Pericardium There is no pericardial effusion. 2D Dimensions IVSD d PLAX 0.97 cm M: 0.6-1.2 LV Vol A2C d MOD 134.4 mL LVPW d PLAX 0.98 cm M: 0.6 - 1.2 LV Vol A4C d MOD 125.4 mL LVID d PLAX 5.62 cm M: 4.2 - 5.8 LV EF A4C MOD 47.2 % LVDs 4.05 cm M: 2.5 - 4.0 LV EF A2C MOD 53.2 % Ao Root d 3.29 cm M: 3.1 - 3.7 LV EF Biplane MOD 50.6 % Ao Asc Diam d 3.50 cm M: 2.6 - 3.4 SV 66.65 mL LV EF Teichholz 52.2 % SV Index 23.59 mL/m2 LVEF (Nino's) 50.63 % M: 52 - 72 LV Volume 89.11 mL M: 62 - 150 LV Volume Index 31.59 mL/m2 M: 34 - 74 LV Vol Biplane MOD 131.6 mL FS 27.10 % M-Mode TAPSE 2.70 cm (M/F) >1.7 LV Diastology MV E' medial 0.109 (>0.07 m/s) MV E Vmax 0.93 (0.4-1.3 m/s) LV E/e MED 8.50 (<14) MV E/E' medial 8.52 Aortic Valve LVOT Area 4.44 cm2 AoV Area Vmax 2.95 cm2 LVOT Vmax 1.02 m/s AoV Area/ BSA (Vmax) 1.04 cm2/m2 LVOT Mean Wilmer. 0.81 m/s RAMYA Mean Wilmer. 3.58 cm2 LVOT Peak Grad 4.2 mmHg RAMYA Mean Wilmer. Index 1.27 cm2/m2 LVOT Mean Grad 2.8 mmHg LVOT VTI 0.175 m LVOT Diam s 2.35 cm AoV Vmax 1.54 m/s Velocity Ratio 0.66 AoV Mean Wilmer. 1.01 m/s AoV Peak Grad 9.5 mmHg LVOT SV 77.89 mL AoV Mean Grad 4.7 mmHg AoV VTI 0.209 m AoV Area VTI 3.73 cm2 AoV Area/ BSA (VTI) 1.32 cm/m2 Mitral Valve MV DT 168 (160-240 msec) MV PHT 49 msec MV Area PHT 4.52 cm2 Pulmonary Valve PV Vmax 1.14 (0.5-1.5 m/s) RVOT Peak Gr. 1.94 mmHg PV Peak Grad 5.2 mmHg RVOT Mean Gr. 1.30 mmHg PV Mean Grad 3.1 mmHg RVOT VTI 0.130 m PV VTI 0.170 m RVOT Vmax 0.70 m/s
== END 2020-04-28 02:19 ==
PROVIDERS: PCP Family Medicine; Visit Provider Family Medicine
DX: R60.0 Localized edema (principal); Z79.899 Other long term (current) drug therapy
CPT/HCPCS: 93306

== ENCOUNTER 2020-04-28 14:49 | Outpatient (CLI) | payer MEDICAID, SELFPAY ==
[2020-04-28 15:07] LABS: Abs Immature Grans 0.05 10^3/uL (0.0-0.06); Absolute Basophil Count 0.06 10^3/uL (0.0-0.2); Absolute Eosinophil Count 0.18 10^3/uL (0.0-0.7); Absolute Lymphocyte Count 2.04 10^3/uL (1.2-3.4); Absolute Monocyte Count 0.65 10^3/uL (0.1-0.8); Absolute Neutrophil Count 6.63 10^3/uL (1.2-6.7); Basophils % 0.6; Eosinophils % 1.9; HCT 43.9 % (40.0-50.0); Immature Grans % 0.5; Lymphocytes % 21.2; MCH 25.7 pg (27.0-33.0); MCHC 31.9 % (32.0-36.0); MCV 80.6 fL (80-95); Monocytes % 6.8; Nucleated RBC 0 %; Platelet Count 219 10^3/uL (130-400); RBC 5.45 10^6/uL (4.36-5.78); RDW 14.7 % (11.8-14.1); RDW-SD 42.5 fL; WBC 9.61 10^3/uL (4.4-10.8)
== END 2020-04-28 15:09 ==
PROVIDERS: PCP Family Medicine; Visit Provider Nurse Practitioner Family
DX: F20.9 Schizophrenia, unspecified (principal); Z79.899 Other long term (current) drug therapy
CPT/HCPCS: 36415; 85025

== ENCOUNTER 2020-05-27 12:16 | Outpatient (CLI) | payer MEDICAID, SELFPAY ==
[2020-05-27 12:35] LABS: Abs Immature Grans 0.07 10^3/uL (0.0-0.06); Absolute Basophil Count 0.04 10^3/uL (0.0-0.2); Absolute Eosinophil Count 0.12 10^3/uL (0.0-0.7); Absolute Lymphocyte Count 1.74 10^3/uL (1.2-3.4); Absolute Monocyte Count 0.78 10^3/uL (0.1-0.8); Absolute Neutrophil Count 6.83 10^3/uL (1.2-6.7); Basophils % 0.4; Eosinophils % 1.3; HCT 41.6 % (40.0-50.0); HGB 13.4 g/dL (13.5-17.5); Immature Grans % 0.7; Lymphocytes % 18.2; MCH 25.8 pg (27.0-33.0); MCHC 32.2 % (32.0-36.0); MCV 80.2 fL (80-95); MPV 8.6 fL (8.0-11.0); Monocytes % 8.1; Neutrophils % 71.3; Nucleated RBC 0 %; Platelet Count 204 10^3/uL (130-400); RBC 5.19 10^6/uL (4.36-5.78); RDW 15.4 % (11.8-14.1); RDW-SD 44.3 fL; WBC 9.58 10^3/uL (4.4-10.8)
== END 2020-05-27 12:36 ==
PROVIDERS: PCP Family Medicine; Visit Provider Nurse Practitioner Family
DX: F20.9 Schizophrenia, unspecified (principal); Z79.899 Other long term (current) drug therapy
CPT/HCPCS: 36415; 85025

== ENCOUNTER 2020-06-26 02:07 | Outpatient (CLI) | payer MEDICAID, SELFPAY ==
[2020-06-26 12:14] LABS: Abs Immature Grans 0.05 10^3/uL (0.0-0.06); Absolute Basophil Count 0.05 10^3/uL (0.0-0.2); Absolute Eosinophil Count 0.12 10^3/uL (0.0-0.7); Absolute Lymphocyte Count 1.34 10^3/uL (1.2-3.4); Absolute Monocyte Count 0.82 10^3/uL (0.1-0.8); Absolute Neutrophil Count 6.84 10^3/uL (1.2-6.7); Basophils % 0.5; Eosinophils % 1.3; HCT 41.8 % (40.0-50.0); HGB 13.6 g/dL (13.5-17.5); Immature Grans % 0.5; Lymphocytes % 14.5; MCH 26.4 pg (27.0-33.0); MCHC 32.5 % (32.0-36.0); Monocytes % 8.9; Neutrophils % 74.3; Nucleated RBC 0 %; Platelet Count 212 10^3/uL (130-400); RBC 5.16 10^6/uL (4.36-5.78); RDW 15.2 % (11.8-14.1); RDW-SD 44.4 fL; WBC 9.22 10^3/uL (4.4-10.8)
== END 2020-06-26 02:27 ==
PROVIDERS: PCP Family Medicine; Visit Provider Nurse Practitioner Family
DX: F20.9 Schizophrenia, unspecified (principal); Z79.899 Other long term (current) drug therapy
CPT/HCPCS: 36415; 85025

== ENCOUNTER 2020-07-17 03:14 | Outpatient (CLI) | payer MEDICAID, SELFPAY ==
[2020-07-17 12:57] LABS: Absolute Basophil Count 0.05 10^3/uL (0.0-0.2); Absolute Eosinophil Count 0.13 10^3/uL (0.0-0.7); Absolute Lymphocyte Count 1.47 10^3/uL (1.2-3.4); Absolute Monocyte Count 0.66 10^3/uL (0.1-0.8); Absolute Neutrophil Count 5.46 10^3/uL (1.2-6.7); Basophils % 0.6; Eosinophils % 1.7; HCT 39.5 % (40.0-50.0); HGB 12.5 g/dL (13.5-17.5); Immature Grans % 1.3; Lymphocytes % 18.7; MCH 25.9 pg (27.0-33.0); MCHC 31.6 % (32.0-36.0); MCV 81.8 fL (80-95); Monocytes % 8.4; Neutrophils % 69.3; Nucleated RBC 0 %; Platelet Count 238 10^3/uL (130-400); RBC 4.83 10^6/uL (4.36-5.78); RDW 14.8 % (11.8-14.1); RDW-SD 43.9 fL; WBC 7.87 10^3/uL (4.4-10.8)
== END 2020-07-17 03:34 ==
PROVIDERS: PCP Family Medicine; Visit Provider Nurse Practitioner Family
DX: F20.9 Schizophrenia, unspecified (principal)
CPT/HCPCS: 36415; 85025

== ENCOUNTER 2020-08-15 03:49 | Outpatient (CLI) | payer MEDICAID, SELFPAY ==
[2020-08-15 12:58] LABS: Abs Immature Grans 0.05 10^3/uL (0.0-0.06); Absolute Basophil Count 0.04 10^3/uL (0.0-0.2); Absolute Eosinophil Count 0.09 10^3/uL (0.0-0.7); Absolute Lymphocyte Count 1.52 10^3/uL (1.2-3.4); Basophils % 0.4; Eosinophils % 0.8; HCT 41.6 % (40.0-50.0); HGB 13.2 g/dL (13.5-17.5); Immature Grans % 0.5; Lymphocytes % 13.9; MCH 25.4 pg (27.0-33.0); MCHC 31.7 % (32.0-36.0); MCV 80.2 fL (80-95); MPV 9.4 fL (8.0-11.0); Monocytes % 8.1; Neutrophils % 76.3; Nucleated RBC 0 %; Platelet Count 238 10^3/uL (130-400); RBC 5.19 10^6/uL (4.36-5.78); RDW 14.6 % (11.8-14.1); RDW-SD 42.3 fL; WBC 10.93 10^3/uL (4.4-10.8)
[2020-08-15 12:59] LABS: Absolute Monocyte Count 0.89 10^3/uL (0.1-0.8); Absolute Neutrophil Count 8.34 10^3/uL (1.2-6.7)
== END 2020-08-15 04:09 ==
PROVIDERS: Nurse Practitioner Family; PCP Family Medicine; Visit Provider Emergency Medicine
DX: F20.9 Schizophrenia, unspecified (principal); Z79.899 Other long term (current) drug therapy
CPT/HCPCS: 36415; 85025

== ENCOUNTER 2020-09-12 15:30 | Outpatient (CLI) | payer MEDICAID, SELFPAY ==
[2020-09-12 15:46] LABS: Abs Immature Grans 0.05 10^3/uL (0.0-0.06); Absolute Basophil Count 0.04 10^3/uL (0.0-0.2); Absolute Eosinophil Count 0.12 10^3/uL (0.0-0.7); Absolute Lymphocyte Count 1.66 10^3/uL (1.2-3.4); Absolute Monocyte Count 0.66 10^3/uL (0.1-0.8); Absolute Neutrophil Count 6.76 10^3/uL (1.2-6.7); Basophils % 0.4; Eosinophils % 1.3; HCT 41.3 % (40.0-50.0); HGB 13.2 g/dL (13.5-17.5); Immature Grans % 0.5; Lymphocytes % 17.9; MCH 25.2 pg (27.0-33.0); MPV 9.2 fL (8.0-11.0); Monocytes % 7.1; Neutrophils % 72.8; Nucleated RBC 0 %; Platelet Count 211 10^3/uL (130-400); RBC 5.23 10^6/uL (4.36-5.78); RDW 15.2 % (11.8-14.1); RDW-SD 43.1 fL; WBC 9.29 10^3/uL (4.4-10.8)
== END 2020-09-12 15:50 ==
PROVIDERS: PCP Family Medicine; Visit Provider Psychiatry & Neurology Psychiatry
DX: F20.9 Schizophrenia, unspecified (principal)
CPT/HCPCS: 36415; 85025

== ENCOUNTER 2020-10-02 13:26 | Emergency (ER) | payer MEDICAID, SELFPAY ==
[2020-10-02 13:31] VITALS: BP 145/85; PULSE 110; TEMP 35.9; O2SAT 93
--- NOTE | 2020-10-02 13:45 | NUR.NOTE ---
pt refusing to change into safety clothing wanded by [facility] Nursing Note:
--- NOTE | 2020-10-02 13:50 | ED.GENADUL_ITS ---
Discharge Plan Disposition Patient Disposition: OTHER Condition: Stable Discharge Details Clinical Impression: Schizophrenia Primary Care Provider: Shelby Rankin V ED Provider: Sebas Burleson Home Meds and New Rx's Prescriptions: No Action ibuprofen 800 mg Tablet 800 mg PO TID PRNRF: 0 clozapine 100 mg Tablet 200 mg PO HS RF: 0 omeprazole 20 mg Capsule,Delayed Release(Dr/Ec) 20 mg PO DAILY RF: 0 hydroxyzine HCl 25 mg Tablet 25 mg PO BID PRNRF: 0 diazepam 10 mg Tablet 5 mg PO BID PRNRF: 0 olanzapine 20 mg Tablet 35 mg PO QHS RF: 0 furosemide 40 mg Tablet 40 mg PO DAILY RF: 0 Discharge Data Discharge Date/Time-TO BE ENTERED AT DEPARTURE: 10/03/20 09:55 Medical Decision Making <GERONIMO Lucas - Last Filed: 10/02/20 15:56> 35-year-old gentleman presenting at the request of mental health for potential suicidal ideation. Patient admits to depression, schizophrenia, auditory hallucinations for the past 6 months. He lives at a jail and reports that the people they are mean to him and he does not want to be there any longer. He admits to vague suicidal thoughts, denies any homicidal thoughts. He would prefer to be hospitalized until possible. He denies any acute medical concerns, recent illness or trauma. He does not want to get undressed into a hospital gown. enforcement safety officer came to the bedside to perform wand for security purposes. Will provide medical screen examination obtain laboratory values for potential psychiatric placement. Will perform rapid Covid. Laboratories reveal no obvious emergent process that would inhibit a mental health evaluation. I spoke with Mika from [facility] human services who plans to have a Zoom evaluation with the patient. Evaluation complete. At this time patient remains voluntary. They would like to reevaluate the patient in the next hour or so when the next staff comes on. At that time we will likely be able to make more of a disposition. At the time of signout, awaiting repeat mental health evaluation and final disposition. Patient has been cooperative. Remains voluntary. Medical Records Medical records reviewed: Yes I reviewed the patient's medical records. Lab Data Lab results reviewed: Yes I reviewed the patient's lab results. Lab results narrative: Laboratory Tests Range/Units 10/02/20 10/02/20 10/02/20 14:05 14:05 14:05 WBC (4.4-10.8) 10^3/uL 10.28 RBC (4.36-5.78) 10^6/uL 5.25 Hgb (13.5-17.5) g/dL 13.2 L Hct (40.0-50.0) % 42.0 MCV (80-95) fL 80.0 MCH (27.0-33.0) pg 25.1 L MCHC (32.0-36.0) % 31.4 L RDW (11.8-14.1) % 15.9 H Plt Count (130-400) 10^3/uL 235 MPV (8.0-11.0) fL 8.9 Immature Gran % 0.5 Neutrophils % 73.4 Lymphocytes % 16.2 Monocytes % 8.5 Eosinophils % 0.8 Basophils % 0.6 Nucleated RBC % % 0 Absolute Neutrophils (1.2-6.7) 10^3/uL 7.55 H Absolute Lymphocytes (1.2-3.4) 10^3/uL 1.67 Absolute Monocytes (0.1-0.8) 10^3/uL 0.87 H Absolute Eosinophils (0.0-0.7) 10^3/uL 0.08 Absolute Basophils (0.0-0.2) 10^3/uL 0.06 Sodium (136-145) mmol/L 138 Potassium (3.5-5.1) mmol/L 3.9 Chloride (98-107) mmol/L 104 Carbon Dioxide (21.0-32.0) mmol/L 25.4 Anion Gap (3-11) mmol/L 8.6 BUN (7-18) mg/dL 6 L Creatinine (0.70-1.30) mg/dL 0.8 Estimated GFR/1.73 m2 (mL/min/1.73m2) >= 60.00 Glucose (74-106) mg/dL 108 H Calcium (8.5-10.1) mg/dL 8.6 Total Bilirubin (0.2-1.0) mg/dL 0.5 AST (15-37) U/L 12 L ALT (16-63) U/L 19 Alkaline Phosphatase (46-116) U/L 91 Total Protein (6.4-8.2) g/dL 7.2 Albumin (3.4-5.0) g/dL 3.7 TSH (0.36-3.74) uIU/mL 1.14 Urine Color (Yellow) Urine Clarity (Clear) Urine pH (5-8) Ur Specific [place] (1.005-1.025) Urine Protein (Negative) mg/dL Urine Ketones (Negative) mg/dL Urine Blood (Negative) Urine Nitrite (Negative) Urine Bilirubin (Negative) Urine Urobilinogen (Up TO 0.2) EU/dL Ur Leukocyte Esterase (Negative) Urine RBC (0-2) HPF Urine WBC (0-5) HPF Ur Epithelial Cells (Negative) HPF Urine Crystals (Negative) HPF Urine Bacteria (Negative) HPF Urine Casts (Negative) LPF Urine Mucus (Negative) Urine Other (Negative) Ur Culture Indicated? Urine Glucose (Negative) mg/dL Salicylates (<2.8) mg/dL < 2.8 Acetaminophen (10-30) ug/mL < 2 Ethyl Alcohol (<3) mg/dL < 3.0 COVID-19 Source SARS-CoV-2 (PCR) (Negative) Influenza Type A (PCR) (Negative) Influenza Type B (PCR) (Negative) RSV (PCR) (Negative) Range/Units 10/02/20 10/02/20 10/02/20 14:10 14:40 14:41 WBC (4.4-10.8) 10^3/uL RBC (4.36-5.78) 10^6/uL Hgb (13.5-17.5) g/dL Hct (40.0-50.0) % MCV (80-95) fL MCH (27.0-33.0) pg MCHC (32.0-36.0) % RDW (11.8-14.1) % Plt Count (130-400) 10^3/uL MPV (8.0-11.0) fL Immature Gran % Neutrophils % Lymphocytes % Monocytes % Eosinophils % Basophils % Nucleated RBC % % Absolute Neutrophils (1.2-6.7) 10^3/uL Absolute Lymphocytes (1.2-3.4) 10^3/uL Absolute Monocytes (0.1-0.8) 10^3/uL Absolute Eosinophils (0.0-0.7) 10^3/uL Absolute Basophils (0.0-0.2) 10^3/uL Sodium (136-145) mmol/L Potassium (3.5-5.1) mmol/L Chloride (98-107) mmol/L Carbon Dioxide (21.0-32.0) mmol/L Anion Gap (3-11) mmol/L BUN (7-18) mg/dL Creatinine (0.70-1.30) mg/dL Estimated GFR/1.73 m2 (mL/min/1.73m2) Glucose (74-106) mg/dL Calcium (8.5-10.1) mg/dL Total Bilirubin (0.2-1.0) mg/dL AST (15-37) U/L ALT (16-63) U/L Alkaline Phosphatase (46-116) U/L Total Protein (6.4-8.2) g/dL Albumin (3.4-5.0) g/dL TSH (0.36-3.74) uIU/mL Urine Color (Yellow) Yellow Cancelled Urine Clarity (Clear) Sl cloudy Cancelled Urine pH (5-8) 7.5 Cancelled Ur Specific [place] (1.005-1.025) 1.025 Cancelled Urine Protein (Negative) mg/dL 30 H Cancelled Urine Ketones (Negative) mg/dL Negative Cancelled Urine Blood (Negative) Negative Cancelled Urine Nitrite (Negative) Negative Cancelled Urine Bilirubin (Negative) Small H Cancelled Urine Urobilinogen (Up TO 0.2) EU/dL 4.0 H Cancelled Ur Leukocyte Esterase (Negative) Negative Cancelled Urine RBC (0-2) HPF 3-5 H Urine WBC (0-5) HPF 3-5 Ur Epithelial Cells (Negative) HPF Rare Urine Crystals (Negative) HPF Negative Urine Bacteria (Negative) HPF Few Urine Casts (Negative) LPF Negative Urine Mucus (Negative) Moderate Urine Other (Negative) Few spermatozoa Ur Culture Indicated? No Urine Glucose (Negative) mg/dL Negative Cancelled Salicylates (<2.8) mg/dL Acetaminophen (10-30) ug/mL Ethyl Alcohol (<3) mg/dL COVID-19 Source Nasopharynx SARS-CoV-2 (PCR) (Negative) Negative Influenza Type A (PCR) (Negative) Negative Influenza Type B (PCR) (Negative) Negative RSV (PCR) (Negative) Negative <Odalis Gaona - Last Filed: 10/03/20 20:39> Care handed off to me by GERONIMO Michael pending voluntary psychiatric placement of patient. Mental health did call back and made the decision for patient to be voluntarily admitted and they will be seeking placement at this time. At this time patient is calm and cooperative, hemodynamically stable. 1702: Discussed plan of care with patient regarding plan for placement, he is complaining of head pain. He is becoming restless and anxious as reported by [facility]. I did place an order for his normal medications of 20 mg olanzapine and 5 mg of diazepam. Patient normally takes 10 mg of diazepam as needed. Patient states that he feels crazy informed by patient sitter that he is stating I just want to get the hell out of here. 1738: Patient changed out into paper scrubs, [facility] at , patient medicated with above meds. Will order his nightly meds for 8pm. 1933: Patient ambulated to bathroom. I will order his night the regular medication dose of clozapine 200 mg. 1951: Regular meds ordered, [facility] Batres attempting to reevaluate patient however at this time she is too sleepy to complete the evaluation. Apparently there was no documented mental health evaluation completed earlier, they will reattempt when patient is more awake. Patient at this time remains cooperative. 2030: Patient sleeping, breathing eupneic, [facility] at bedside. 2238: Patient is awake, eating some Jell-O ambulated to the bathroom we will attempt to have mental health re-evaluation completed at this time. 2318: eval completed by Gisel with [facility], she was unsure if patient continues to be voluntary, Spoke with patient and confirmed that he is in fact willing to be admitted to a facility if needed, and he said Yes I am. During his stay here he did note some erratic behavior, calling out to people names, questionable speaking to people that are not there. 2347: Care is to be handed off to Dr. Isidro Perry MD, ER attending pending mental health placement, my understanding at this time is that mental health will touch base with patient in the morning for reevaluation. At the time of this dictation patient was calm and cooperative, however easily agitated. <Sebas Burleson MD - Last Filed: 10/03/20 09:30> pt signed out to me from dr. perry pending voluntary psych placement. Is remaining in the ED as their are two inpatient minor psych patients at the present time upstairs and decision was made for safety to keep patient in the ED for the present time. Pt calm and resting now cooperative, will continue to monitor until placement is found. pt reevaluated by mental health this morning and patient wanted to smoke a cigarrette. He was offered nicotine replacement but declined this. He then decided to elope. HE was not suicidal when I evaluated him this morning and because he was under voluntary status did not have the authority to hold him against his will. HPI <GERONIMO Lucas - Last Filed: 10/02/20 15:56> General Mode of arrival: ambulatory . Date/Time Provider Initiated Documentation: 10/02/20 13:37 . Limitations to Documentation: no limitations . Information obtained by: patient . HPI Narrative: This is a 35-year-old gentleman with a past medical history that includes schizophrenia, depression, GERD, morbid obesity, current smoker, presenting to the ER at the request of [facility] human services. Patient reports that he has been hearing voices for what he describes as 6 months, reports that they are sometimes mean to him, also tell something such as go outside and smoke a cigarette. He states that they are witchcraft. He lives in a jail, states that nobody there likes him they are mean to him. Because of this he is feeling suicidal. He tells me that nearly 15 years ago he made an attempt but did nothing today to harm himself. He initially tells me he has no specific plan but then later tells me that he supposed if he could use glass. He is very vague with his response. He reports a chronic cough which is unchanged otherwise has no medical concerns or complaints. Denies recent illness or trauma. Denies headache, visual changes, neck pain, chest pain, shortness of breath, abdominal pain, nausea, vomiting, change in bowel or bladder function, numbness, tingling, weakness. He tells me he does not want to hurt anybody and denies any homicidal ideation. He does state that he does not feel safe leaving. He would prefer to be hospitalized. Related Data Home Medications Medication Instructions Recorded Confirmed clozapine 200 mg PO HS 06/26/19 10/03/20 diazepam 5 mg PO BID PRN 06/26/19 10/03/20 hydroxyzine HCl 25 mg PO BID PRN 06/26/19 10/03/20 ibuprofen 800 mg PO TID PRN 06/26/19 10/03/20 olanzapine 35 mg PO QHS 06/26/19 10/03/20 omeprazole 20 mg PO DAILY 06/26/19 10/03/20 furosemide 40 mg PO DAILY 04/15/20 10/03/20 Allergies Allergy/AdvReac Type Severity Reaction Status Date / Time No Known Allergies Allergy Unverified 10/03/20 10:36 General Stated Complaint: PsychEval JOHN: 2 Review of Systems <GERONIMO Lucas - Last Filed: 10/02/20 15:56> All systems reviewed & are unremarkable except as noted in HPI and below PFSH <GERONIMO Lucas - Last Filed: 10/02/20 15:56> Social History Smoking/Tobacco Use Status: Current every day Tobacco Type: cigarettes Smoking risk assessment performed?: Yes Alcohol Intake: never Drug use: Occasionally Substance use type: marijuana In current or past relationships, have you been: threatened Do you feel safe at home: No Do you feel safe in your relationship?: No Additional Social history: hearing voices. the voices won't let me sleep.--feels threatened by people in house where he lives. Exam <GERONIMO Lucas - Last Filed: 10/02/20 15:56> Const General: cooperative, healthy appearing, comfortable and no acute distress Orientation: alert and awake [facility] Head: normal to inspection, normocephalic and atraumatic Face and sinus: normal facial exam Mouth: moist mucous membranes Eyes General: appearance normal, both eyes and all related structures Conjunctivae: conjunctivae normal Sclera: sclerae normal Neck Neck: normal visual inspection, full ROM, no meningeal signs, trachea midline and supple Resp Effort & Inspection: normal respiratory effort and able to speak in complete sentences Auscultation: clear to auscultation bilaterally Cardio Rate: regular rate Rhythm: regular rhythm GI Inspection: obesity Palpation: soft and nontender Back/Spine/Pelvis Back: No back tenderness Skin General skin exam: no rashes or lesions noted Neuro General: patient alert, patient awake, moves all extremities and no focal motor deficits Gait: normal gait Sensory Exam: no sensory deficits noted Extrem General: normal to inspection and full ROM Psych Appearance: grossly normal Mental Status: mental status grossly normal Speech and Movement: pressured speech Mood: anxious mood Attitude: cooperative Thought Process: flight of ideas Thought Content: suicidality Insight: poor Judgment: poor Course <GERONIMO Lucas - Last Filed: 10/02/20 15:56> Vital Signs Vital signs: Vital Signs Temperature 35.9 C L 10/02/20 13:31 Pulse 110 H 10/02/20 13:31 Blood Pressure 145/85 H 10/02/20 13:31 Pulse Oximetry 93 10/02/20 13:31 Temperature 35.9 C L 10/02/20 13:31 Temperature Source Temporal Artery Scan 10/02/20 13:31 Pulse 110 H 10/02/20 13:31 Respiratory Effort Incrsd Work of Breathing 10/02/20 13:34 Blood Pressure 145/85 H 10/02/20 13:31 Blood Pressure Position Sitting 10/02/20 13:31 Pulse Oximetry 93 10/02/20 13:31 Oxygen Delivery Method Room Air 10/02/20 13:31 Oxygen Flow Rate 0 10/02/20 13:31 Pain Level 0 10/02/20 13:31 Sign Out <GERONIMO Lucas - Last Filed: 10/02/20 15:56> Sign Out Data: Sign Out Comment: Schizophrenia, vague SI. Patient would prefer not going back to the jail. He is awaiting mental health reevaluation around 5 PM and final disposition. Last updated by Miller León PA at 10/02/20 15:57 Sign Out Comment: Continues on outpatient medication regimen. Did not sleep much overnight. Occasionally noted to be responding to internal stimuli and having conversations. Remains voluntary at this point and pending placement at psychiatric facility. Last updated by Sav Perry MD at 10/03/20 07:36
[2020-10-02 14:12] LABS: Source Nasopharynx
[2020-10-02 14:16] LABS: Abs Immature Grans 0.05 10^3/uL (0.0-0.06); Absolute Basophil Count 0.06 10^3/uL (0.0-0.2); Absolute Eosinophil Count 0.08 10^3/uL (0.0-0.7); Absolute Lymphocyte Count 1.67 10^3/uL (1.2-3.4); Absolute Monocyte Count 0.87 10^3/uL (0.1-0.8); Absolute Neutrophil Count 7.55 10^3/uL (1.2-6.7); Basophils % 0.6; Eosinophils % 0.8; HGB 13.2 g/dL (13.5-17.5); Immature Grans % 0.5; Lymphocytes % 16.2; MCH 25.1 pg (27.0-33.0); MCHC 31.4 % (32.0-36.0); MPV 8.9 fL (8.0-11.0); Monocytes % 8.5; Neutrophils % 73.4; Nucleated RBC 0 %; Platelet Count 235 10^3/uL (130-400); RBC 5.25 10^6/uL (4.36-5.78); RDW 15.9 % (11.8-14.1); RDW-SD 45.1 fL; WBC 10.28 10^3/uL (4.4-10.8)
[2020-10-02 14:36] LABS: ALT 19 U/L (16-63); AST 12 U/L (15-37); Albumin 3.7 g/dL (3.4-5.0); Alkaline Phosphatase 91 U/L (46-116); Anion Gap 8.6 mmol/L (3-11); BUN 6 mg/dL (7-18); Bilirubin, Total 0.5 mg/dL (0.2-1.0); CO2 25.4 mmol/L (21.0-32.0); CREATININE 0.8 mg/dL (0.70-1.30); Calcium 8.6 mg/dL (8.5-10.1); Chloride 104 mmol/L (98-107); Glucose 108 mg/dL (74-106); Potassium 3.9 mmol/L (3.5-5.1); Sodium 138 mmol/L (136-145); TSH 1.14 uIU/mL (0.36-3.74); Total Protein 7.2 g/dL (6.4-8.2)
[2020-10-02 14:42] LABS: Salicylate < 2.8 mg/dL (<2.8)
[2020-10-02 14:52] LABS: Bilirubin Small (Negative); Blood Negative (Negative); Clarity Sl Cloudy (Clear); Glucose Negative (Negative); Ketones Negative (Negative); Leukocyte Esterase Negative (Negative); Nitrite Negative (Negative); Specific Gravity 1.025 (1.005-1.025); pH 7.5 (5-8)
[2020-10-02 14:53] LABS: COVID-19 PCR Negative (Negative); Influenza A PCR Negative (Negative); Influenza B PCR Negative (Negative); RSV PCR Negative (Negative)
[2020-10-02 15:02] LABS: Acetaminophen < 2 ug/mL (10-30)
[2020-10-02 15:07] LABS: Bacteria Few HPF (Negative); Casts Negative LPF (Negative); Crystals Negative HPF (Negative); Epithelial Cells Rare HPF (Negative); Mucus Moderate (Negative); Other Cells Few Spermatozoa (Negative)
[2020-10-02 15:09] LABS: C & S Indicated? No
--- NOTE | 2020-10-02 15:23 | CMSP_ITS ---
- If Service Date Differs Date of service: 10/02/20 Time of Service: 15:23 Care Management Safety Plan Status: Voluntary Luke Machado is a 34 year old male who presents in the ED due to not feeling safe at home. He resides in a senior living setting and shared that other residents are mean to him. Rakesh receives services through the STUDIO TECHNICIAN VIDEO OPERATOR Program at [facility] and his vocational case manager (listed as guardian in chart) is Luke Meneses. Interim Safety plan: CM will respond to ED to assess patient after patient has been medically cleared and assessed by screener. If screener deems patient meets criteria for psychiatric stabilization CM will facilitate interdepartmental huddle with [facility] screener for safety planning considerations and meet with patient to review [facility] policy and safety plan, establish individual wishes for treatment and maintain patient rights. INTERIM SAFETY PLAN: 1. Will remain on suicide precautions. 2. Will remain in room under direct supervision of one-on-one staff at all times provided by [facility]; DARIA, REFINING EQUIPMENT OPERATOR compliance coordinator. 3. May have paper cups, plates, finger foods as well as a cardboard spoon with which to eat meals. 4. Follow [facility] Management of the Admitted Behavioral Health Patient policy. 5. Comfort bath system only. 6. No personal belongings 7. Visitors-No visitors at this time. 8. Activities: None currently, soft items permitted per RN discretion. 9. Bathroom privileges: While in the ED, must be accompanied by staff. 10. Phone: Limited to STUDIO TECHNICIAN VIDEO OPERATOR and legal contact at this time. 11. Due to INTERIM status, if patient wishes to leave [facility], staff will contact [facility] Crisis Screener ([phone]) and On-Call Manager Star ([phone]) as soon as possible. In the event of elopement, notify [facility] Police ([phone]). Patient is currently voluntarily at [facility] and seeking inpatient admission when a bed becomes available. [facility] Frontline Ortho Tech will continue seeking placement. Please contact the Historic Sites Supervisor Manager Star ([phone]) and [facility] Ortho Tech ([phone]) for any needed changes in the Safety Plan. Safety plan has been provided to interdepartmental care team.
--- NOTE | 2020-10-02 15:23 | PDOC.CMSAFED ---
- If Service Date Differs Date of service: 10/02/20 Time of Service: 15:23 Care Management Safety Plan Status: Voluntary Luke Machado is a 34 year old male who presents in the ED due to not feeling safe at home. He resides in a [facility] setting and shared that other residents are mean to him. Rakesh receives services through the PLANER FEEDER Program at [facility] and his casey saw operator (listed as guardian in chart) is Luke Meneses. Interim Safety plan: CM will respond to ED to assess patient after patient has been medically cleared and assessed by screener. If screener deems patient meets criteria for psychiatric stabilization CM will facilitate interdepartmental huddle with [facility] screener for safety planning considerations and meet with patient to review [facility] policy and safety plan, establish individual wishes for treatment and maintain patient rights. INTERIM SAFETY PLAN: 1. Will remain on suicide precautions. 2. Will remain in room under direct supervision of one-on-one staff at all times provided by [facility]; DARIA, DECORATING EQUIPMENT SETTER compressor operator. 3. May have paper cups, plates, finger foods as well as a cardboard spoon with which to eat meals. 4. Follow [facility] Management of the Admitted Behavioral Health Patient policy. 5. Comfort bath system only. 6. No personal belongings 7. Visitors-No visitors at this time. 8. Activities: None currently, soft items permitted per RN discretion. 9. Bathroom privileges: While in the ED, must be accompanied by staff. 10. Phone: Limited to PLANER FEEDER and legal contact at this time. 11. Due to INTERIM status, if patient wishes to leave [facility], staff will contact [facility] Crisis Screener ([phone]) and On-Call Sand Cutter Operator ([phone]) as soon as possible. In the event of elopement, notify [facility] Police ([phone]). Patient is currently voluntarily at [facility] and seeking inpatient admission when a bed becomes available. [facility] Frontline Lawn Service Manager will continue seeking placement. Please contact the Roving Marker Sand Cutter Operator ([phone]) and [facility] Lawn Service Manager ([phone]) for any needed changes in the Safety Plan. Safety plan has been provided to interdepartmental care team.
[2020-10-02 15:26] LABS: ETHANOL BLOOD < 3.0 mg/dL (<3)
[2020-10-02 15:33] LABS: *AMPHETAMINES SCREEN URINE Negative (Negative); *BARBITURATES SCREEN URINE Negative (Negative); *BENZODIAZEPINES SCREEN URINE Negative (Negative); Cannabinoids THC Negative (Negative); Cocaine Screen,Urine Negative (Negative); METHADONE URINE SCREEN Negative (Negative); OPIATES URINE SCREEN Negative (Negative)
[2020-10-02 15:34] LABS: Tricyclic Antidepressants Negative (Negative)
[2020-10-02] MEDS: Acetaminophen 500 MG TAB PO (17:09)
[2020-10-02] MEDS: diazePAM 5 MG TAB PO (17:10)
[2020-10-02] MEDS: OLANZapine 10 MG TAB 20 MG PO (17:10)
[2020-10-02 17:58] VITALS: BP 137/74; PULSE 108; RESP 19; TEMP 36.9; O2SAT 94
--- NOTE | 2020-10-02 18:29 | CMSP_ITS ---
- If Service Date Differs Date of service: 10/02/20 Time of Service: 18:29 Care Management Safety Plan Status: Voluntary Luke Machado is a 34 year old male who presents in the ED due to not feeling safe at home. He resides in a alf setting and shared that other residents are mean to him. Rakesh receives services through the TUMBLER TENDER Program at [facility] and his case mgr (listed as guardian in chart) is Luke Meneses. VOLUNTARY FOR INPATIENT PSYCHIATRIC STABILIZATION. Patient is appropriate in all interactions since arriving at [facility]; Pt has demonstrated appropriate coping and communication skills, has articulated his or her needs and concerns and is fully engaged during staff interactions. Safety plan has been established with patient, and care team, to adhere to patient goals, identify restrictions based on behavioral status, address nutrition, and determine allowed personal belongings, tools for hygiene and personal care. Determine level of activity including ambulation, level of super vision, visitors, and determine privileges based on behaviors and level of engagement by pt. SAFETY PLAN: 1. Will remain on suicide precautions. 2. Will remain in room under direct supervision of one-on-one staff at all times provided by [employer]; DARIA, PHP CONSULTANT tractor drill operator. 3. May have paper cups, plates, finger foods as well as a cardboard spoon with which to eat meals. 4. Follow [facility] Management of the Admitted Behavioral Health Patient policy. 5. Comfort bath system only. 6. No personal belongings 7. Visitors-No visitors at this time. 8. Activities: None currently, soft items permitted per RN discretion. 9. Bathroom privileges: While in the ED, must be accompanied by staff. 10. Phone: Limited to TUMBLER TENDER and legal contact at this time. 11. Due to VOLUNTARY status, if patient wishes to leave [facility], staff will contact [facility] Crisis Screener ([phone]) and On-Call Alcoholic Counselor ([phone]) as soon as possible. In the event of elopement, notify [facility] Police ([phone]). Patient is currently voluntarily at [facility] and seeking inpatient admission when a bed becomes available. [facility] Frontline System Programmer will continue seeking placement. Please contact the Gambreler Helper Alcoholic Counselor ([phone]) and [facility] System Programmer ([phone]) for any needed changes in the Safety Plan. Safety plan has been provided to interdepartmental care team.
--- NOTE | 2020-10-02 18:29 | PDOC.CMSAFED ---
- If Service Date Differs Date of service: 10/02/20 Time of Service: 18:29 Care Management Safety Plan Status: Voluntary Luke Machado is a 34 year old male who presents in the ED due to not feeling safe at home. [facility] resides in a [facility] setting and shared that other residents are mean to him. Rakesh receives services through the AIRCRAFT MECHANIC [employer]UCT[employer] Program at [facility] and his pillowcase sewer (listed as guardian in chart) is Luke Meneses. VOLUNTARY FOR INPATIENT PSYCHIATRIC STABILIZATION. Patient is appropriate in all interactions since arriving at [facility]; Pt has demonstrated appropriate coping and communication skills, has articulated his or her needs and concerns and is fully engaged during staff interactions. Safety plan has been established with patient, and care team, to adhere to patient goals, identify restrictions based on behavioral status, address nutrition, and determine allowed personal belongings, tools for hygiene and personal care. Determine level of activity including ambulation, level of supervision, visitors, and determine privileges based on behaviors and level of engagement by pt. SAFETY PLAN: 1. Will remain on suicide precautions. 2. Will remain in room under direct supervision of one-on-one staff at all times provided by [employer]; DARIA, FISH CLEANER MACHINE TENDER phosphoric acid operator. 3. May have paper cups, plates, finger foods as well as a cardboard spoon with which to eat meals. 4. Follow [facility] Management of the Admitted Behavioral Health Patient policy. 5. Comfort bath system only. 6. No personal belongings 7. Visitors-No visitors at this time. 8. Activities: None currently, soft items permitted per RN discretion. 9. Bathroom privileges: While in the ED, must be accompanied by staff. 10. Phone: Limited to [employer] and legal contact at this time. 11. Due to VOLUNTARY status, if patient wishes to leave [facility], staff will contact [facility] Crisis Screener ([phone]) and On-Call Switchboard Mechanic ([phone]) as soon as possible. In the event of elopement, notify [place] [employer] ([phone]). Patient is currently voluntarily at [facility] and seeking inpatient admission when a bed becomes available. [facility] Frontline Correctional Agency Director will continue seeking placement. Please contact the Elastic Yarn Twister Helper Switchboard Mechanic ([phone]) and [facility] Correctional Agency Director ([phone]) for any needed changes in the Safety Plan. Safety plan has been provided to interdepartmental care team.
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
[2020-10-03] MEDS: Omeprazole 20 MG CAPCR PO (07:31)
[2020-10-03 08:01] VITALS: BP 137/72; PULSE 101; RESP 20; TEMP 37.1; O2SAT 91
--- NOTE | 2020-10-03 09:00 | NUR.NOTE ---
patient spoke with mental health at 0800
--- NOTE | 2020-10-03 09:10 | NUR.NOTE ---
patient requesting to go outside to smoke a cigarette.Patient refused nicroderm. Mental health contacted. Mental health worker speaking to patient.
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
--- NOTE | 2020-10-03 09:31 | NUR.NOTE ---
patient became aggitated while speaking to mental health. Patient wanted to have a cigarette. HE refused nicroderm and diazpam. Patient left the emergency dept. TIERNEY and [facility] notified.
[2020-10-03 11:12] VITALS: BP 114/69; PULSE 102; RESP 20; TEMP 36.9; O2SAT 90
== END 2020-10-03 09:55 | disposition other institution (70) ==
PROVIDERS: Physician Assistant; Emergency Provider Emergency Medicine; PCP Family Medicine
DX: R44.0 Auditory hallucinations (principal); F20.9 Schizophrenia, unspecified; F32.9 Major depressive disorder, single episode, unspecified; R45.1 Restlessness and agitation; Z03.818 Encounter for observation for suspected exposure to other biological agents ruled out; Z53.29 Procedure and treatment not carried out because of patient's decision for other reasons
CPT/HCPCS: 36415; 80053; 80307; 99285; 80320; 80329; 81003; 81015; 84443; 85025; 99284

== ENCOUNTER 2020-10-03 09:26 | Emergency (ER) | payer MEDICAID, SELFPAY ==
[2020-10-03 09:40] VITALS: BP 112/64; PULSE 102; RESP 20; TEMP 36.9; O2SAT 91
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
[2020-10-03] MEDS: LORazepam 1 MG TAB 2 MG PO (10:25)
--- NOTE | 2020-10-03 10:32 | PDOC.MHCN ---
Date of service: 10/03/20 Time of Service: 08:42 Mental Health Crisis Note Presenting Issue How did you arrive at the ED and why did you come: Client arrived at ED with S/I. Precipitating Factors The client continues to report S/I, and hearing voices. His speech was garbled and disorganized. The patient was voluntary but then tried to elope, and left the ED only to return a little while later. Disposition BEHAVIOR: Patient was vocally abusive to staff, he attempted to leave in 10 degree weather wearing a Tshirt. EYE CONTACT: Wandering MOOD: Agitated and unhappy. Patient was impatient. AFFECT: Disorganized and confused. SLEEP(trouble falling/staying asleep: Patient slept through the night. Plan The patient is hearing voices, reporting he can't sleep because of this. He has S/I and his thought process is disorganized and confused. He is making choices that are detrimental to his well being and safety and poses a threat to others.
--- NOTE | 2020-10-03 10:34 | CMSP_ITS ---
- If Service Date Differs Date of service: 10/03/20 Time of Service: 10:35 Care Management Safety Plan Status: Involuntary INVOLUNTARY FOR INPATIENT PSYCHIATRIC STABILIZATION. Safety plan has been established to meet the needs of the patient, and consideration of the care team, to adhere to patient goals, identify restrictions based on behavioral status, address nutrition, and determine allowed personal belongings, tools for hygiene and personal care. Determine level of activity including ambulation, level of supervision, visitors, and determine privileges based on behaviors and level of engagement by pt. SAFETY PLAN: 1. Will remain on SI/HI precautions. Patient has been wanded by sailboat captain and is allowed to remain in his clothes. 2. Will remain in room under direct supervision of one-on-one staff at all times provided by [employer], DARIA, TRAFFIC SIGNAL REPAIRER pie bakery laborer. 3. May have paper cups, plates, finger foods as well as a cardboard spoon 4. Follow [facility] Management of the Admitted Behavioral Health Patient policy. 5. Comfort bath system only. 6. No personal belongings 7. Visitors: No visitors allowed per [facility] Covid policy. 8. Activities: Activity books, crayons, and other activities at nursing discretion. 9. Bathroom privileges with supervision 10. Phone: Allowed outgoing and incoming phone calls with his father. 11. Due to INVOLUNTARY status, patient is being held at [facility] by the Department of Mental Health ([facility]) until 2nd certification by [facility] Psychiatrist can be performed (within 24 hours). Staff will provide de-escalation support (CPI) as needed. If patient wishes to leave [facility], staff will contact [facility] Crisis Screener ([phone]) and On-Call Tumbling And Rolling Supervisor ([phone]) as soon as possible. In the event of elopement, notify [place] [employer] ([phone]). Patient is currently involuntarily at [facility]. [facility] Frontline Printed Circuit Photographer will continue seeking placement. Please contact the [employer] Tube Bender Tumbling And Rolling Supervisor ([phone]) for any needed changes to Safety Plan. Safety plan has been provided to interdepartmental care team. Patient will be transported by sailboat captain at time of discharge.
--- NOTE | 2020-10-03 10:34 | PDOC.CMSAFED ---
- If Service Date Differs Date of service: 10/03/20 Time of Service: 10:35 Care Management Safety Plan Status: Involuntary INVOLUNTARY FOR INPATIENT PSYCHIATRIC STABILIZATION. Safety plan has been established to meet the needs of the patient, and consideration of the care team, to adhere to patient goals, identify restrictions based on behavioral status, address nutrition, and determine allowed personal belongings, tools for hygiene and personal care. Determine level of activity including ambulation, level of supervision, visitors, and determine privileges based on behaviors and level of engagement by pt. SAFETY PLAN: 1. Will remain on SI/HI precautions. Patient has been wanded by barrel brander and is allowed to remain in his clothes. 2. Will remain in room under direct supervision of one-on-one staff at all times provided by [employer]PS[employer], DARIA, DIRECTOR EMERGENCY DEPARTMENT graphite mill operator. 3. May have paper cups, plates, finger foods as well as a cardboard spoon 4. Follow [facility] Management of the Admitted Behavioral Health Patient policy. 5. Comfort bath system only. 6. No personal belongings 7. Visitors: No visitors allowed per [facility] Covid policy. 8. Activities: Activity books, crayons, and other activities at nursing discretion. 9. Bathroom privileges with supervision 10. Phone: Allowed outgoing and incoming phone calls with his father. 11. Due to INVOLUNTARY status, patient is being held at [facility] by the Department of Mental Health ([facility]) until 2nd certification by [facility] Psychiatrist can be performed (within 24 hours). Staff will provide de-escalation support (CPI) as needed. If patient wishes to leave [facility], staff will contact [facility] Crisis Screener ([phone]) and On-Call Dry Kiln Operator Helper ([phone]) as soon as possible. In the event of elopement, notify [place] [employer] ([phone]). Patient is currently involuntarily at [facility]. [facility] Frontline Automobile Tire Builder will continue seeking placement. Please contact the Spa Therapist Dry Kiln Operator Helper ([phone]) for any needed changes to Safety Plan. Safety plan has been provided to interdepartmental care team. Patient will be transported by barrel brander at time of discharge.
[2020-10-03 12:00] VITALS: BP 112/64; PULSE 102; RESP 20; TEMP 36.9; O2SAT 91
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
[2020-10-03] MEDS: hydrOXYzine HCL 25 MG TAB PO (16:27)
== END 2020-10-03 17:05 | disposition short-term general hospital (02) ==
PROVIDERS: Emergency Provider Emergency Medicine; PCP Family Medicine
DX: F20.89 Other schizophrenia (principal)
CPT/HCPCS: 99285; 99283